=== PATIENT | male | born 1945 | race Caucasian/White ===

== ENCOUNTER 2020-01-13 15:14 | Emergency (ER) | payer MEDICARE, OTHER, SELFPAY ==
[2020-01-13 15:20] VITALS: BP 108/61; PULSE 71; RESP 16; TEMP 37; O2SAT 98; BMI 25.1
--- NOTE | 2020-01-13 15:38 | DI.CT.S_ITS ---
PROCEDURE: CT HEAD/BRAIN WO CON INDICATIONS: head injury TECHNIQUE: Noncontrast 4.5 mm thick angled axial sections acquired from the foramen magnum to the vertex, with coronal and sagittal reformats. For radiation dose reduction, the following was used: automated exposure control, adjustment of mA and/or kV according to patient size. COMPARISON: None. FINDINGS: Image quality: Excellent. CSF spaces: Basal cisterns are patent. Left posterior fossa arachnoid cyst is noted which has mild mass effect in left cerebellar hemisphere.. The ventricles are symmetric in size and shape. Brain: No intracranial bleeds or masses. There is cerebral volume loss for age, with resultant ventricular and sulcal prominence. There are periventricular and deep white matter chronic small vessel ischemic changes. There is intracranial internal carotid artery atherosclerosis. Skull and face: Calvarium and visualized facial bones appear intact, without suspicious lesions. Small right frontal/periorbital soft tissue hematoma. Sinuses: Visualized sinuses and mastoids are clear. IMPRESSION: No acute intracranial disease process. Dictated by: Roya Garrett MD, PhD on 01/13/2020 at 15:51 Approved by: Roya Garrett MD, PhD on 01/13/2020 at 15:58
--- NOTE | 2020-01-13 16:09 | ED.HEATRA ---
HPI - Head Injury <DOUG Low - Last Filed: 01/13/20 21:05> General Chief complaint: Head Injury Stated complaint: fall in drive way, hit his head Time Seen by Provider: 01/13/20 15:49 Source: patient Mode of arrival: Wheelchair History of Present Illness HPI Narrative: 75yo male with a history of Parkinson's presents to the emergency department for a fall that occurred about 2 hours ago. Patient has a shuffle to his gait and was walking up the driveway when he reports tripping and falling and hitting his head on the concrete. Patient denies any loss of consciousness, vomiting, vision changes, or vision changes. He helped himself up from his fall and began to walk towards the house where he tripped and fell again. He denies pain in any other area but does report a laceration over his right eyebrow. Patient denies any loss of consciousness after the 2nd fall, family reports he walked to the house and tapped on the window and was ?covered in blood ?from the laceration but remained himself. Family and patient deny any unusual behavior, deformities, change in activities, vomiting, abdominal pain, chest pain, shortness of breath, vision loss, double vision, dizziness, or any other concerns. Related Data Home Medications Medication Instructions Recorded Confirmed carbidopa-levodopa tab 01/13/20 citalopram 10 mg PO DAILY 01/13/20 01/13/20 rivastigmine tartrate mg 01/13/20 Allergies Allergy/AdvReac Type Severity Reaction Status Date / Time No Known Drug Allergies Allergy Verified 01/13/20 15:26 Review of Systems <DOUG Low - Last Filed: 01/13/20 21:05> Review of Systems Narrative: REVIEW OF SYSTEMS: GENERAL: Denies fever or chills. HENT: Reports head trauma with laceration, no LOC. EYES: No loss of vision, double vision, eye pain, or irritation. CARDIOVASCULAR: No chest pain or syncope. RESPIRATORY: No shortness of breath or cough. GASTROINTESTINAL: No nausea, vomiting, diarrhea, or constipation. MUSCULOSKELETAL: No pain, weakness, or deformities. INTEGUMENTARY: No rash, lesions, or pruritus. NEURO: No numbness, tingling, confusion. PSYCH: No behavior or mood changes. Patient History <DOUG Low - Last Filed: 01/13/20 21:05> Medical History No significant medical problems (Acute) Social History Smoking Status: Former smoker Smoking Status: Former smoker alcohol intake frequency: 0-2 drinks per day Alcohol type: wine Substance Use Type: does not use Exam <DOUG Low - Last Filed: 01/13/20 21:05> Initial Vital Signs Initial Vital Signs: Vital Signs Temperature 98.6 F 01/13/20 15:20 Pulse Rate 71 01/13/20 15:20 Respiratory Rate 16 01/13/20 15:20 Blood Pressure 108/61 01/13/20 15:20 Pulse Oximetry 98 01/13/20 15:20 PHYSICAL EXAMINATION: GENERAL: Well groomed, alert, and cooperative. Answers questions promptly and appropriately. Vital signs noted. HENT: Normocephalic, atraumatic. Ear canals patent. Oral mucosa is pink and moist. 3.5cm forehead laceration noted to medial aspect of right eyebrow, bleeding controlled without pressure. EYES: PERRLA, EOMIs, Conjunctiva pink, sclera white, no periorbital swelling. CHEST: Normal to inspection and without deformities. CARDIOVASCULAR: S1 and S2 sounds normal. Regular rate and rhythm, no murmurs, clicks, or bruits. No pedal edema. RESPIRATORY: Normal respiratory rate, trachea midline, airway patent. No stridor, nasal flaring or accessory muscle use. Lungs are clear in all storm without wheeze, rhonchi, or crackles. GASTROINTESTINAL: Bowel sounds normoactive. Abdomen is soft and non-tender. No organomegaly. MUSCULOSKELETAL: No pain on palpation or deformities to shoulders, arms, hips, legs, knees, or ankles. Two 3-4 cm abrasions noted to right and left knee, no bleeding. Equal tone and mass bilaterally. Patient observed to have a shuffle to his gait, which family reports this as his norm. EXTREMITIES: CMS intact. Moves all extremities. SKIN: Warm, dry, soft, appropriate color for ethnicity. No lesions, rashes, or wounds. NEURO: Alert and Oriented X 3. CN III-XIII grossly intact. Good coordination. Ataxia observed, patient and family report this is his norm. PSYCH: Appropriate affect and mood. <Armando River DO - Last Filed: 01/21/20 20:39> Initial Vital Signs Initial Vital Signs: Vital Signs Temperature 98.6 F 01/13/20 15:20 Pulse Rate 71 01/13/20 15:20 Respiratory Rate 16 01/13/20 15:20 Blood Pressure 108/61 01/13/20 15:20 Pulse Oximetry 98 01/13/20 15:20 Procedures <DOUG Low - Last Filed: 01/13/20 21:05> Laceration Repair Laceration 1: Site: face Size (cm): 3.5 Description: linear Depth: simple, single layer Pre-repair: irrigated extensively Skin layer closed with: dermabond Course <DOUG Low - Last Filed: 01/13/20 21:05> Orders Ordered: Discontinued Medications Diphtheria/Tetanus/Acell Pertussis (Adacel) 0.5 ml IM .ONCE ONE Stop: 01/13/20 15:29 Last Admin: 01/13/20 16:17 Dose: 0.5 ml Documented by: [email or web address] Consultations Consultation #1: Patient staffed with Dr. River. Vital Signs Vital signs: Vital Signs - 8 hr 01/13/20 15:20 01/13/20 16:49 Temperature 98.6 F Pulse Rate 71 67 Respiratory Rate 16 15 Blood Pressure 108/61 137/80 Pulse Oximetry 98 94 <Armando River DO - Last Filed: 01/21/20 20:39> Orders Ordered: Discontinued Medications Diphtheria/Tetanus/Acell Pertussis (Adacel) 0.5 ml IM .ONCE ONE Stop: 01/13/20 15:29 Last Admin: 01/13/20 16:17 Dose: 0.5 ml Documented by: [email or web address] Vital Signs Vital signs: Vital Signs - 8 hr 01/13/20 15:20 01/13/20 16:49 Temperature 98.6 F Pulse Rate 71 67 Respiratory Rate 16 15 Blood Pressure 108/61 137/80 Pulse Oximetry 98 94 MDM - Head Injury <DOUG Low - Last Filed: 01/13/20 21:05> Medical Records Attestation: I reviewed the patient's medical records. Lab Data Attestation: I reviewed the patient's lab results. Imaging Data CT scan - head: Radiologist's Impression: [address] [address] [address] Scan Report Signed Patient: Jc Amaya [facility]#: [id number] : 7Acct:[id number] Age/Sex: 75 / MDate of Service: 01/13/20 Loc: ED Accession Number: [id number] Procedure: CT head/brain wo con Ordering Provider: Armando River D.O. PROCEDURE: CT HEAD/BRAIN WO CON INDICATIONS: head injury TECHNIQUE: Noncontrast 4.5 mm thick angled axial sections acquired from the foramen magnum to the vertex, with coronal and sagittal reformats. For radiation dose reduction, the following was used: automated exposure control, adjustment of mA and/or kV according to patient size. COMPARISON: None. FINDINGS: Image quality: Excellent. CSF spaces: Basal cisterns are patent. Left posterior fossa arachnoid cyst is noted which has mild mass effect in left cerebellar hemisphere.. The ventricles are symmetric in size and shape. Brain: No intracranial bleeds or masses. There is cerebral volume loss for age, with resultant ventricular and sulcal prominence. There are periventricular and deep white matter chronic small vessel ischemic changes. There is intracranial internal carotid artery atherosclerosis. Skull and face: Calvarium and visualized facial bones appear intact, without suspicious lesions. Small right frontal/periorbital soft tissue hematoma. Sinuses: Visualized sinuses and mastoids are clear. IMPRESSION: No acute intracranial disease process. Dictated by: Roya Garrett MD, PhD on 01/13/2020 at 15:51 Approved by: Roya Garrett MD, PhD on 01/13/2020 at 15:58 [facility] Narrative Medical decision making narrative: This is a 75-year-old male presenting to the emergency department with a history of Parkinson's and describing a clear mechanical fall without significant risk factors such as syncope. But due to his multiple falls that were unwitnessed, CT was ordered which was non-remarkable (less intracranial etiology). Patient remained alert and awake and hemodynamically stable throughout the emergency department stay. There is a small laceration without significant hematomas noted to his right forehead. This was repaired with glue (see procedure note), there was no alarming findings in his neurological exam. Very little suspicion of presyncopal episodes or other hemodynamic instabilities leading to falls as patient has a shuffling gait which causes him to fall often And patient did not have any other symptoms with, before, or after the fall. Patient and family were given very strict return precautions, they agreed to plan of care verbalized understanding. Discharge Plan Departure Patient Disposition: Home Clinical Impression: Head injury Qualifiers: Encounter type: initial encounter Qualified Code(s): S09.90XA - Unspecified injury of head, initial encounter Facial laceration Qualifiers: Encounter type: initial encounter Qualified Code(s): S01.81XA - Laceration without foreign body of other part of head, initial encounter Discharge Date/Time: 01/13/20 16:50 Instructions: DI for Closed Head Injury Activity Restrictions/Additional Instructions: Thank you for entrusting me with your care today. As discussed, your head CT is negative for any concerning findings. I have repaired the laceration with glue. Keep the area clean and dry, do not apply any Neosporin or ointment to the wound for the next 3-4 days as this will dissolve the glue quickly. After day 4, you may apply Neosporin. Watch for signs of infection such as increased redness, pus, and increased pain. Return emergency department immediately if you developed severe headaches, vision changes, continued falls, chest pain, shortness of breath, high fevers, or any other concerns. Your Tdap vaccination was updated today, your arm may feel sore over the next 1-2 days. Prescriptions: No Action citalopram 10 mg tablet 10 mg PO DAILY RF: 0 rivastigmine tartrate 6 mg capsule RF: 0 carbidopa-levodopa 25-100 mg tablet RF: 0 <Armando River, DO - Last Filed: 01/21/20 20:39> Sign Out Provider Sign Out Attestation: Dr River Co-Sign Statement: I was available for consultation during this patient's emergency department visit. This chart is signed by myself for administrative purposes only. I did not have direct contact with this patient during this visit. They were seen independently by the APC.
[2020-01-13] MEDS: TET,DIPH,PERTUSS(ACELL),VAC/PF 0.5 ML SYRINGE IM (16:17)
[2020-01-13 16:49] VITALS: BP 137/80; PULSE 67; RESP 15; O2SAT 94
== END 2020-01-13 16:50 | disposition home or self-care (01) ==
PROVIDERS: Emergency Provider Nurse Practitioner
DX: S09.90XA Unspecified injury of head, initial encounter (principal); S01.81XA Laceration without foreign body of other part of head, initial encounter; W19.XXXA Unspecified fall, initial encounter; G20 Parkinson's disease; Z23 Encounter for immunization
CPT/HCPCS: 70450; 90471; 99283; 99284; 90715

== ENCOUNTER 2020-05-21 08:54 | Observation (INO) | payer MEDICARE, OTHER, SELFPAY ==
[2020-05-21] VITALS (7 sets, daily range): BP systolic 108–157; BP diastolic 62–100; PULSE 58–100; RESP 18–20; TEMP 36.6–37.1; O2SAT 94–97; BMI 25.9
--- NOTE | 2020-05-21 09:01 | ED.FALL ---
HPI - Fall General Chief Complaint: Fall Stated Complaint: Fall 2 days ago Time Seen by Provider: 05/21/20 09:00 Source: patient, family and EMS Limitations: no limitations (Dementia and Parkinson's) History of Present Illness HPI Narrative: Patient is a 75-year-old male with history of Parkinson's and dementia presenting after an assisted fall 2 days ago. He is not on any antiplatelet or anticoagulation medication. There was no head injury or loss of consciousness during the fall he does however have a bruise on the left side. Family is concerned for possible internal bleeding. He denies any abdominal pain no nausea no headache. Family also thought that they saw blood in his urine. at bedside states that the caregiver caught him and lowered him to the ground however on his way down he hit on a chair. He is typically able to help get himself up and out of bed however since the injury she is unable to get him out of bed due to pain she has given him Tylenol and ibuprofen without much relief. MD complaint: fall Onset (ago): day(s) (2) Fall from: standing Prolonged down time: no Related Data Home Medications Medication Instructions Recorded Confirmed carbidopa-levodopa See Rx Instructions .ROUTE .COMPLEX 01/13/20 05/21/20 quetiapine 25 mg PO BID 05/21/20 05/21/20 Allergies Allergy/AdvReac Type Severity Reaction Status Date / Time No Known Drug Allergies Allergy Verified 05/21/20 09:05 Review of Systems Review of Systems Narrative: GENERAL: Denies chills, fatigue, malaise, fever, sweats, travel HEENT: Denies sinus pain, ear pain, sore throat, difficulty swallowing, neck pain RESPIRATORY: Denies dyspnea, cough, wheezing, hemoptysis, sputum. CARDIOVASCULAR: Denies chest pain, palpitations, orthopnea, edema GASTROINTESTINAL: Denies nausea, vomiting, abdominal pain, diarrhea, constipation, melena. : Denies dysuria, frequency, incontinence, hematuria, urinary retention, flank pain. MUSCULOSKELETAL: See HPI SKIN: Contusion NEUROLOGIC: Denies weakness, dizziness, headache, numbness, change in speech, confusion PSYCHIATRIC: No concerning psychosocial issues. 12 point review of systems is negative except for those stated above and HPI Patient History Medical History Dementia (Acute) No significant medical problems (Acute) Parkinsons (Acute) Social History household members: spouse Smoking Status: Former smoker Smoking Status: Former smoker alcohol intake frequency: 0-2 drinks per day Alcohol type: wine Substance Use Type: does not use Exam Initial Vital Signs Initial Vital Signs: Vital Signs Temperature 98.8 F 05/21/20 09:02 Pulse Rate 70 05/21/20 09:02 Respiratory Rate 20 05/21/20 09:02 Blood Pressure 116/75 05/21/20 09:02 Pulse Oximetry 97 05/21/20 09:02 GENERAL: Alert gentleman with parkinsonian like features and in no acute distress. HEENT: Head atraumatic,EOMI, pupils reactive, face symmetric NECK: No vertebral tenderness no step-off CARDIOVASCULAR: Regular rate and rhythm without murmurs, rubs or gallops. Rib contusion noted on left lateral no paradoxical movement no flail chest RESPIRATORY: Breath sounds equal bilaterally, no wheezes rales or rhonchi. ABDOMEN: Soft, nontender. Normoactive bowel sounds all 4 quadrants. No guarding or rebound. BACK: No vertebral tenderness no step-off contusion noted left lateral ribs around 7 and 8 mild swelling is noted : No CVA tenderness EXTREMITIES: Normal range of motion, no clubbing or edema. Neurovascularly intact NEUROLOGICAL: Alert answers questions channel marketing specialist strength equal bilaterally SKIN: Warm, dry, no laceration, no petechiae, no rashes or lesions. Course Orders Ordered: ED Orders 05/21/20 09:00 XR ribs LT min 3V w CXR1V Stat Complete Blood Count AUTO DIFF Stat 05/21/20 09:12 Urinalysis and Microscopic Stat 05/21/20 09:28 Basic Metabolic Panel Stat 05/21/20 10:04 Consult to Physical Therapy Evaluate & Treat 05/21/20 10:37 Consult to General Surgery Stat Oxycodone/Acetaminophen (Percocet 5/325) 1 tab PO Q4HR PRN PRN Reason: Pain, Moderate (4-6) Vital Signs Vital signs: Vital Signs - 8 hr 05/21/20 09:02 05/21/20 09:30 Temperature 98.8 F Pulse Rate 70 86 Respiratory Rate 20 Blood Pressure 116/75 117/74 Pulse Oximetry 97 97 MDM - Fall Lab Data Attestation: I reviewed the patient's lab results. Result diagrams: 05/21/20 09:00 05/21/20 09:28 Labs: Lab Results 05/21/20 05/21/20 05/21/20 Range/Units 09:00 09:12 09:28 WBC 8.6 (4.5-11.0) X10^3/uL RBC 4.54 (4.5-5.9) X10^6/uL Hgb 14.9 (13.5-17.5) g/dL Hct 43.9 (41-53) % MCV 96.7 (80-100) fL MCH 32.9 (26-34) PG MCHC 34.0 (30-36) % RDW 13.4 (11.6-14.8) % Plt Count 202 (150-400) X10^3/uL Neut % (Auto) 78.7 H (50-75) % Lymph % (Auto) 13.5 L (25-40) % [place] % (Auto) 7.0 (3-14) % Eos % (Auto) 0.2 L (2-4) % Baso % (Auto) 0.6 (0-2) % Neut # (Auto) 6700 (9899-0942) /uL Lymph # (Auto) 1200 (1729-5078) /uL [place] # (Auto) 600 (0-900) /uL Eos # (Auto) 0 (0-450) /uL Baso # (Auto) 100 (0-100) /uL Sodium 137 (137-145) mmol/L Potassium 4.0 (3.4-5.1) mmol/L Chloride 107 (98-107) mmol/L Carbon Dioxide 22 (22-32) mmol/L BUN 19 (9-20) mg/dL Creatinine 0.70 (0.66-1.25) mg/dL Estimated GFR > 60.0 (>60) mL/min BUN/Creatinine Ratio 27.1 H (6-22) Glucose 111 H (80-110) mg/dL Calcium 9.4 (8.4-10.2) mg/dL Urine Color [place] Urine Appearance Cloudy Urine pH 6.0 (4.5-8.0) Ur Specific [place] 1.025 (1.000-1.035) Urine Protein Trace H (Negative) Urine Glucose (UA) Negative (Negative) g/dL Urine Ketones Negative (NEGATIVE) Urine Occult Blood Trace-intact (Negative) Urine Nitrate Negative (Negative) Urine Bilirubin Negative (NEGATIVE) Urine Urobilinogen 0.2 (0.2) E.U./dL Ur Leukocyte Esterase Negative (NEGATIVE) Urine RBC 1-5/hpf (0-5/HPF) Urine WBC 0-1/hpf (0-5/HPF) Urine Bacteria None seen (None) Urine Mucus 1+ H (Negative) Ur Culture Indicated? Cult not indicated Imaging Data Chest x-ray: Radiologist's Impression: PROCEDURE: XR RIBS LT MIN 3V W CXR1V INDICATIONS: fall 2 days ago TECHNIQUE: 4 views of the left ribs were acquired, along with a single view chest. COMPARISON: None. FINDINGS: Surgical changes and devices: None. Bones and chest wall: Minimally displaced fractures involving the 7th through eleventh left ribs are evident. No suspicious bony lesions. Overlying soft tissues appear unremarkable. Lungs and pleura: No pleural effusions or pneumothorax. Lungs appear clear. Mediastinum: Mediastinal contours appear normal. Heart size is normal. IMPRESSION: Multiple minimally displaced lower left rib fractures. No pneumothorax. Dictated by: Sg Anglin M.D. on 05/21/2020 at 8:34 MDM Narrative Medical decision making narrative: Patient found to have multiple rib fractures meet criteria for modified trauma. His patient is unable to get out of bed due to multiple fractures he will need to stay in the hospital. Surgery has been consulted due to modified trauma however patient will be admitted to Medicine. Dr. gomez has been notified and agrees Dr. Wilder in the emergency department to see and evaluate patient Discharge Plan Departure Patient Disposition: Admitted as Observation Clinical Impression: Fracture of multiple ribs of left side Qualifiers: Encounter type: initial encounter Fracture type: closed Qualified Code(s): S22.42XA - Multiple fractures of ribs, left side, initial encounter for closed fracture Discharge Date/Time: 05/21/20 12:08 Admit Date/Time: 05/21/20 10:41 Admit Provider: Giulia Gomez
[2020-05-21 09:26] LABS: Add Manual Diff / Slide Review NO; Basophils Absolute Auto 100 /uL (0-100); Basophils Percent Auto 0.6 % (0-2); Eosinophils Absolute Auto 0 /uL (0-450); Eosinophils Percent Auto 0.2 % (2-4); Hematocrit 43.9 % (41-53); Hemoglobin 14.9 g/dL (13.5-17.5); Lymphocytes Absolute Auto 1200 /uL (1100-4500); Lymphocytes Percent Auto 13.5 % (25-40); Mean Corpuscular Hemoglobin 32.9 PG (26-34); Mean Corpuscular Volume 96.7 fL (80-100); Monocytes Absolute Auto 600 /uL (0-900); Neutrophils Absolute Auto 6700 /uL (1500-7000); Neutrophils Percent Auto 78.7 % (50-75); Platelet Count 202 X10^3/uL (150-400); Red Blood Cell Count 4.54 X10^6/uL (4.5-5.9); Red Cell Distribution Width 13.4 % (11.6-14.8); White Blood Cell Count 8.6 X10^3/uL (4.5-11.0)
[2020-05-21 09:26] LABS: Bacteria Urine None Seen
[2020-05-21 09:27] LABS: Appearance Urine UA CLOUDY; Bilirubin Urine UA NEGATIVE (NEGATIVE); Color Urine UA ORANGE; Glucose Urine UA NEGATIVE (Negative); Ketones Urine UA NEGATIVE (NEGATIVE); Leukocyte Esterase Urine UA NEGATIVE (NEGATIVE); Nitrite Urine UA NEGATIVE (Negative); Occult Blood Urine UA TRACE-INTACT (Negative); Protein Urine UA TRACE (Negative); Specific Gravity Urine UA 1.025 (1.000-1.035); Urobilinogen Urine UA 0.2 E.U./dL (0.2)
[2020-05-21 09:35] LABS: Culture Indicated Urine Cult Not Indicated; Mucus Urine 1+ (Negative); RBC Urine 1-5/HPF (0-5/HPF); WBC Urine 0-1/HPF (0-5/HPF)
[2020-05-21 09:39] LABS: BUN Creatinine Ratio 27.1 (6-22); Blood Urea Nitrogen 19 mg/dL (9-20); Calcium 9.4 mg/dL (8.4-10.2); Carbon Dioxide 22 mmol/L (22-32); Chloride 107 mmol/L (98-107); Estimated Glomerular Filt Rate > 60.0 mL/min (>60); Glucose 111 mg/dL (80-110); HEMOLYSIS 34 (0-50); Sodium 137 mmol/L (137-145)
--- NOTE | 2020-05-21 10:52 | PT-IP ANOTE ---
Received PT order while pt in ED. Reviewed the chart and prepared to meet the pt, but ED provider states pt will be admitted. Will follow up with this pt once admitted to the acute care floor.
--- NOTE | 2020-05-21 10:52 | PM.CN ---
History of Present Illness Consult details Date Patient Seen: 05/21/20 Time Patient Seen: 10:52 Chief complaint: Fall 2 days ago Narrative: 75-year-old male with dementia began to fall 2 days ago was caught by his attendant min on the way to the floor he struck a tear in his left side. On x-ray today there appears to be 2 fractured ribs although the radiologist can see more I myself see only 2 7 and 8 or 8 9 left-sided. There is no pneumonia no pleural effusion no pulmonary contusion. He has no abdominal pain. Meds Home Medications and Allergies Home Medications Medication Instructions Recorded Confirmed Type carbidopa-levodopa tab 01/13/20 History citalopram 10 mg PO DAILY 01/13/20 01/13/20 History rivastigmine tartrate mg 01/13/20 History Allergies Allergy/AdvReac Type Severity Reaction Status Date / Time No Known Drug Allergies Allergy Verified 05/21/20 09:05 Exam Vital Signs (past 8 hours): - 05/21/20 09:02 05/21/20 09:30 Temperature 98.8 F Pulse Rate 70 86 Respiratory Rate 20 Blood Pressure 116/75 117/74 Pulse Oximetry 97 97 Oxygen Delivery Method Room Air Narrative Exam Narrative: The patient can communicate regarding the present. He is not a good historian. Patient has minimal tenderness left lower ribs. Equal breath sounds bilaterally. No abdominal tenderness. Objective Labs Result Diagrams: 05/21/20 09:00 05/21/20 09:28 Labs: Laboratory Results - last 24 hr 05/21/20 05/21/20 05/21/20 09:00 09:12 09:28 WBC 8.6 RBC 4.54 Hgb 14.9 Hct 43.9 MCV 96.7 MCH 32.9 MCHC 34.0 RDW 13.4 Plt Count 202 Neut % (Auto) 78.7 H Lymph % (Auto) 13.5 L [place] % (Auto) 7.0 Eos % (Auto) 0.2 L Baso % (Auto) 0.6 Neut # (Auto) 6700 Lymph # (Auto) 1200 [place] # (Auto) 600 Eos # (Auto) 0 Baso # (Auto) 100 Sodium 137 Potassium 4.0 Chloride 107 Carbon Dioxide 22 BUN 19 Creatinine 0.70 Estimated GFR > 60.0 BUN/Creatinine Ratio 27.1 H Glucose 111 H Calcium 9.4 Urine Color [place] Urine Appearance Cloudy Urine pH 6.0 Ur Specific [place] 1.025 Urine Protein Trace H Urine Glucose (UA) Negative Urine Ketones Negative Urine Occult Blood Trace-intact Urine Nitrate Negative Urine Bilirubin Negative Urine Urobilinogen 0.2 Ur Leukocyte Esterase Negative Urine RBC 1-5/hpf Urine WBC 0-1/hpf Urine Bacteria None seen Urine Mucus 1+ H Ur Culture Indicated? Cult not indicated Assessment & Plan Assessment & Plan narrative: Somewhat demented male patient with at least 2 rib fractures left lower lateral ribs. No underlying effusion or pneumonia. The states that she cannot take care of him at home. He is being admitted to the medical service. I think arrangements should be considered for extended care facility. Proper analgesics can be taken orally. Incentive spirometer is ordered as well
[2020-05-21 12:40] LABS: COVID19 -Nasal RAPID Negative (Negative)
--- NOTE | 2020-05-21 13:07 | PC.NURSE ---
Patient admitted from the ER around 1230. VSS, He has dementia and is confused but pleasant. Having a hard time following direction, as patient does have a dx of dementia per his . He also has some Parkinsons, he has some clenching movements with his face and jaw. Patient has two bruises to the left side of his back, from previous fall and has fallen 2 times in less than a week. He is sleeping now and denies discomfort.
--- NOTE | 2020-05-21 13:33 | CM.DANOTE ---
DCP/Assessment: Reviewed chart in Emergency Department. Patient is a 75yr old male admitted to [facility] after fall 2 days ago. No PCP listed. Primary payor is 1)Medicare 2)[place] jaxon Gerber. Met with patient and spouse/Mirna at bedside in ED room#4 explained CM/SENIOR UI SOFTWARE ENGINEER role. Per Dr. Calderón patient will be admitted to floor by Dr. Gomez. Unclear at this time if patient will be OBS or inpatient status. Spouse at bedside teary eyed. She reports that patient with long h/o parkinson's and dementia. She is primary caregiver but also has hired assistance in the home. Patient reports that prior to patient's fall at home, he was able to ambulate fairly well with FWW. Patient and spouse have [place] at [address] [place] [address] they also have residence in [place]. Spouse reports that they have been [place] since January 2020. They decided to stay [place] during the pandemic. Spouse reports that they have not gone out much and that she has been dong a lot for patient in the home. Patient and spouse have daughter's that live in [place] as well. Spouse reports that she thinks patient fell twice but that he unsure. Apparently, yesterday she heard a loud bang coming from their bedroom. She came upstairs to check on patient and he was laying on bed diagonally moaning in pain. Since that time patient reports that she has not been able to get patient to move due to pain. Spouse grateful that patient admitted. She hopes to take patient home when he is stable but wants to first make sure that 1)pain under control 2)mobility increased. SENIOR UI SOFTWARE ENGINEER spoke with accepting provider/Dr. Gomez. She plans to see patient and spouse this afternoon. Suggested she order PT/OT and ST. Dr. Gomez in agreement. Spouse most likely would benefit from caregiver training as well. Spouse does have hired caregivers but she is unsure if this is enough. Informed spouse that CM team could most likely arrange HH as well. Spouse appreciative. Spouse confirms that they will be staying in [place] for awhile. The current residence is 2 story and she has appointment to have elevator installed to make it easier for her and patient to get up/down stairs. Master bedroom is on second floor. Notified spouse that SENIOR UI SOFTWARE ENGINEER would follow up with her and patient on Friday05-22-2020. Patient assigned to room #207. SENIOR UI SOFTWARE ENGINEER plans to keep and follow for d/c planning needs. Card with number provided to spouse. COVID test pending. P: Pending. New admit today, assessment completed in ED. SENIOR UI SOFTWARE ENGINEER to follow closely and coordinate d/c planning arrangements. Anticipate home with HH. RAJNI Lewis Discharge Planning/Care Management CM Discharge Assessment Start: 05/21/20 13:25 Freq: Status: Active Protocol: Document 05/21/20 13:25 KJS (Rec: 05/21/20 13:33 KJS [id number]) Discharge Planning Assessment Assigned Inspection Engineer RAJNI Lewis Contact Information Mirna Amaya (spouse) Advance Directives? Yes Advance Directives on File No History Provided By Family Member,Significant Other,Medical Record Has Patient been admitted in last 30 No days? Prior Living Arrangements House Household Members spouse Type of transporation used prior to Relies on Others admit Independent with ADL's No: Per spouse, patient not currently I in ADL's. Is patient alert and oriented? No: History of dementia and parkinson's Needs Assistance With Bathing,Grooming,Meal Prep, Toileting,Managing Medications ,Home Chores / Shopping Caregiver for Another No DME Already Rented / Owned FWW / Walker Patient/Family Preference Home with Home Health Comment D/C needs unclear at this time . Spoke with Dr. Gomez ( admitting provider) she will order PT/OT and ST to evaluate during hospitalization. Discharge Plan Home with Home Health Transportation Arrangement Family to provide transport. Additional Comment Anticipate that patient will need HH vs. ? at time of d/c. Patient currently has private pay cargiver to assist spouse approximately 4hrs per day. If patient plan is home with home health No : Has signed face to face form been completed? Review Status In Process Next Review Type Continued Stay Review
--- NOTE | 2020-05-21 14:30 | PM.HP.1 ---
History of Present Illness History of Present Illness Date Patient Seen: 05/21/20 Chief complaint: Fall 2 days ago Narrative: Patient is a 75-year-old male with a history of Parkinson's disease and dementia who fell at home a few days ago. Patient was brought in as he tried to slumped down and the caregiver captured him. He apparently hit the chair. He was evaluated in the emergency room and found to have multiple rib fractures. The patient is unable to provide any history and his has since left. He denies any shortness of breath, any pain at this time. She denies any nausea vomiting or diarrhea. His history is somewhat unreliable. Patient History Medical History Dementia (Acute) No significant medical problems (Acute) Parkinsons (Acute) Family & Social History Family History (Updated 05/21/20 @ 14:32 by Giulia Gomez MD) Mother Patient unable to provide medical history Social History: household members spouse Prior Living Arrangements House Safety & Behavioral: Feels Safe in Current Yes Environment Been Physically Hurt or No Threatened By a Person Suicidal Ideation Description None Suicide Plan Description No Plan Tobacco & Substance use: Tobacco type cigarettes Smoking Status Former smoker alcohol intake frequency 0-2 drinks per day Substance Use Type does not use Meds Home Medications and Allergies Home Medications Medication Instructions Recorded Confirmed Type carbidopa-levodopa See Rx Instructions .ROUTE .COMPLEX 01/13/20 05/21/20 History quetiapine 25 mg PO BID 05/21/20 05/21/20 History Allergies Allergy/AdvReac Type Severity Reaction Status Date / Time No Known Drug Allergies Allergy Verified 05/21/20 09:05 Review of Systems Review of Systems ROS: Yes unobtainable due to mental status Exam Vital Signs (past 8 hours): - 05/21/20 09:02 05/21/20 09:30 05/21/20 11:30 Temperature 98.8 F Pulse Rate 70 86 58 L Respiratory Rate 20 Blood Pressure 116/75 117/74 122/87 Pulse Oximetry 97 97 96 05/21/20 13:09 Temperature 97.8 F Pulse Rate 67 Respiratory Rate 18 Blood Pressure 116/82 Pulse Oximetry 94 Oxygen Delivery Method Room Air Narrative Exam Narrative: Pleasant gentleman resting comfortably in no obvious distress HEENT: Normocephalic atraumatic, extraocular muscles are intact oropharynx reveals moist mucous membranes neck is supple without adenopathy Lungs: Clear to auscultation Cardiac exam: Regular rate and rhythm normal S1-S2 with a 2/6 systolic ejection Abdomen: Soft nontender nondistended Extremities: No edema Back patient is tender palpation in unable to move Neuro exam: Patient speech is somewhat slow. He appears at times confused he is not able to answer all questions. His cranial nerves are intact, his strength is symmetric and equal in the upper extremities, he has difficulty lifting both lower extremities but is able to lift them to gravity. Sensation is grossly intact Skin exam: No lesions noted Psychiatric exam patient is slow to respond seem somewhat confused, is not able answer all questions fully participate in exam. Objective Labs Result Diagrams: 05/21/20 09:00 05/21/20 09:28 Labs: Laboratory Results - last 24 hr 05/21/20 05/21/20 05/21/20 09:00 09:12 09:28 WBC 8.6 RBC 4.54 Hgb 14.9 Hct 43.9 MCV 96.7 MCH 32.9 MCHC 34.0 RDW 13.4 Plt Count 202 Neut % (Auto) 78.7 H Lymph % (Auto) 13.5 L [place] % (Auto) 7.0 Eos % (Auto) 0.2 L Baso % (Auto) 0.6 Neut # (Auto) 6700 Lymph # (Auto) 1200 [place] # (Auto) 600 Eos # (Auto) 0 Baso # (Auto) 100 Sodium 137 Potassium 4.0 Chloride 107 Carbon Dioxide 22 BUN 19 Creatinine 0.70 Estimated GFR > 60.0 BUN/Creatinine Ratio 27.1 H Glucose 111 H Calcium 9.4 Urine Color [place] Urine Appearance Cloudy Urine pH 6.0 Ur Specific [place] 1.025 Urine Protein Trace H Urine Glucose (UA) Negative Urine Ketones Negative Urine Occult Blood Trace-intact Urine Nitrate Negative Urine Bilirubin Negative Urine Urobilinogen 0.2 Ur Leukocyte Esterase Negative Urine RBC 1-5/hpf Urine WBC 0-1/hpf Urine Bacteria None seen Urine Mucus 1+ H Ur Culture Indicated? Cult not indicated COVID-19 PCR 05/21/20 11:13 WBC RBC Hgb Hct MCV MCH MCHC RDW Plt Count Neut % (Auto) Lymph % (Auto) [place] % (Auto) Eos % (Auto) Baso % (Auto) Neut # (Auto) Lymph # (Auto) [place] # (Auto) Eos # (Auto) Baso # (Auto) Sodium Potassium Chloride Carbon Dioxide BUN Creatinine Estimated GFR BUN/Creatinine Ratio Glucose Calcium Urine Color Urine Appearance Urine pH Ur Specific [place] Urine Protein Urine Glucose (UA) Urine Ketones Urine Occult Blood Urine Nitrate Urine Bilirubin Urine Urobilinogen Ur Leukocyte Esterase Urine RBC Urine WBC Urine Bacteria Urine Mucus Ur Culture Indicated? COVID-19 PCR Negative Assessment & Plan Assessment & Plan narrative: Impression 1. 75-year-old male admitted following a ground level fall -patient has suffered multiple nondisplaced left rib fracture -suspect underlying osteoporosis -baseline Parkinson's likely contributed to frequent fall -will continue incentive spirometer -will continue around the clock Tylenol -continue as needed oxycodone -PT OT consultation -plan is for the patient to discharge home with home health 2. Parkinson's disease with dementia -continue Seroquel -continue carbidopa levodopa Patient will be placed on DVT prophylaxis, he is admitted under observation, anticipate discharge home tomorrow Patient per is DNR and will note that his record accordingly Quality VTE Deep Vein Thrombosis/Pulmonary Embolism Present on Admission: No
[2020-05-21] MEDS: OXYCODONE/ACETAMINOPHEN 5/325 TABLET 1 TAB PO (15:22)
[2020-05-21] MEDS: CARBIDOPA-LEVODOPA 25/100 TABLET 1 EACH PO ×2 (15:22→20:06)
--- NOTE | 2020-05-21 15:37 | PT.IIE ---
Medical History (Last Reviewed 05/21/20 @ 09:05 by Demetra Calderón DO) Dementia (Acute) No significant medical problems (Acute) Parkinsons (Acute) Physical Therapy Inpatient Evaluation/Re-Eval M1 PT/OT-IP Prior Functional Status Start: 05/21/20 10:34 Freq: Status: Discharge Protocol: Document 05/21/20 14:51 AW (Rec: 05/21/20 15:37 AW [id number]) Medical Review Prior Functional Status Medical History Reviewed Yes Communication Pt has history of dementia. Able to make needs known Mobility and Gait Pt uses a 4WW for household and short distance community ambulation. He calls his walker Pilo. Pt's , Mirna states he can walk a city block with his walker. Pt 's reports he does best with mobility in the mornings and that his performance declines as the day wears on. When he forgets to use his walker, he will often begin toe-walking and then running which tends to result in a fall. Pt uses a manual wheelchair occasionally - typically when he goes to appointments in [place]. Mirna reports increased incidence of falls recently. Pt has Parkinson's disease and is followed by Dr. Hamilton Smith at [facility] in [place]. There have been no recent changes in his medications, including carbidopa levodopa. Activities of Daily Living and IADL's Pt's spouse provides total assist with dressing; set up, standby, and some washing/ drying assist for showers; and assist with toileting both for positioning on the toilet and for hygiene. Prior Functional Level (Other details) Pt and his have their [place] home on the market. They have been staying in their [facility] since early January. Mirna reports she has been struggling to get a permit for an elevator in the [facility] since the downstairs has only a tub and the pt has difficulty getting in and out of the tub. Walk in shower is upstairs and pt has been able to manage the stairs until recently. Pt's recently began jasmina for caregiver assist with [facility]. Caregiver has been in the home for the past month, starting at [id number] M-F which recently increased to [phone] M-F. Social History Household Members spouse Living Arrangements House Number of Floors (Floors) Two Floors Number of Stairs To Enter/Railing? Level entrance. Pt is able to stay on the main level but he and his prefer to use the walk in shower upstairs. To reach the second level, there are 5 steps with right rail ascending, a landing, and another 6 steps with left rail ascending. Home Environment High Toilet,Walk in Shower,Tub /Shower Home Equipment Four Wheel Walker,Manual Wheelchair,Grab Bars In Shower Additional Social History Comment Pt lives with his , Mirna, who provides primary caregiving. The couple have two daughters - one lives in [place] and the other lives in [place]. M2 PT-IP Current Condition Start: 05/21/20 10:34 Freq: Status: Discharge Protocol: Document 05/21/20 14:51 AW (Rec: 05/21/20 15:37 AW [id number]) Physical Therapy Current Condition Current Condition Evaluation Date 05/21/20 Treatment Diagnosis GLF, left rib fractures, PD, difficulty in walking Onset Date 05/18/20 Precautions Other Precautions high risk of falls M3 PT-IP Subjective Start: 05/21/20 10:34 Freq: Status: Discharge Protocol: Document 05/21/20 14:51 AW (Rec: 05/21/20 15:37 AW [id number]) Subjective Physical Therapy Visit Type Type Initial Evaluation Visit Start Time 13:39 Visit Stop Time 14:26 Total Visit Minutes 47 Notes Pt seen alone. Most history and PLOF was gleaned from telephone conversation with pt 's . Physical Therapy Visit Comments Patient Comments Pt is pleasant and willing to participate with PT. Therapy Pain Assessment Pain When Pain Assessed During Mobility Pain Present Pain Present Pain Reported Location left back Scale Used pt unable to quantify Pain Behaviors Facial Grimacing,Guarding, Holding Area,Restlessness, Wincing Pain Management Techniques Distraction,Re-positioning M4 PT-IP Mobility and Gait Start: 05/21/20 10:34 Freq: Status: Discharge Protocol: Document 05/21/20 14:51 AW (Rec: 05/21/20 15:37 AW [id number]) PT-Bed Mobility Assessment Rolling Type of Rolling Log Rolling,Roll to Right Level of Assist Minimal Assistance,1 Person Assistance Supine to Sit Supine to Sit Moderate Assistance,1 Person Assistance,Bedrails Sit to Supine Sit to Supine Moderate Assistance,1 Person Assistance,Bedrails Scooting Scooting to Edge of Bed Contact Guard Assistance PT-Transfer Assessment Sit to and From Stand Sit to and from Stand Minimal Assistance,1 Person Assistance,Use of Upper Extremities Equipment Transfer Assistive Device Gait Belt,Front Wheeled Walker Transfers Transfer Destination Bed,Chair Transfer Technique pt ambulated with FWW Transfer Ability Level of Assist Moderate Assistance,1 Person Assistance,Use of Upper Extremities Comments Mobility Comments Pt was reclined in bed upon PT arrival. For log roll to his right side, pt required verbal and tactile cues for sequencing and min A x 1. Sidelying to sit transition required mod A x 1 and use of bed rails. Pt was able to sit EOB CGA with rightward lean in sitting. He scooted to EOB CGA with extra time due to pain response. He stood from the bed in the lowest position min A x 1 due to weakness and unsteadiness in initial standing. Pt presented with posterior lean in standing but was able to correct in response to cues. He stood and performed marching steps in place for 1 minute before ambulating toward the door with FWW and min assist for direction with the FWW. He turned and ambulated back to the chair where he transferred with min A x 1. He sat for strength assessment and then stood again min A x 1 for transfer to the bed as requested due to fatigue. Pt required max cues for sequencing and responded best to simple one-word commands. He sat EOB and required mod A x 1 for sit to supine. Pt was repositioned on the bed with alarm on most sensitive setting, call light and all needs within reach. Gait Assessment Gait Gait Assistance Required: Minimum Assistance,1 Person Assist Distance (Feet) 25 Assistive Devices Assistive Device Gait Belt,Front Wheeled Walker Gait Deviations General Gait Pattern Decreased Stride Length, Decreased Feet Clearance, Festinating,Flexed Trunk, Narrow Based Gait Factors Limiting Gait Function Factors Limiting Gait Function Abnormal Tonal Influences, Decreased Activity Tolerance, Decreased Sensation,Decreased Strength,Difficulty Following Directions,Incoordination, Limited Range of Motion,Pain, Poor Balance,Poor Safety Awareness Comments Gait Comments Pt required max cues for walker management, including frequent direction to keep his feet within the walker frame. He uses a 4WW at home and may do better in future with 4WW for familiarity. Stair Climbing Assessment Comments Stair Climbing Comments Not assessed. PT-Balance Assessment Sitting Balance and Reactions Static Sitting Balance Ability Good Dynamic Sitting Balance Ability Good Standing Balance and Reactions Static Standing Balance Ability Fair Dynamic Standing Balance Ability Poor Device Used FWW M5 PT-IP Objective Assessments Start: 05/21/20 10:34 Freq: Status: Discharge Protocol: Document 05/21/20 14:51 AW (Rec: 05/21/20 15:37 AW [id number]) Orientation Orientation/Cognition Level of Alertness Confusional State Orientation Name,Place Safety Awareness Decreased Safety Awareness Memory Description Short Term Impaired,Prison Impaired Comments Pt has hypophonia. He was oriented to self and could say he was in the hospital but was not sure where. He was not otherwise oriented. Pt unable to provide details of his falls or of his home environment. Gross Range of Motion Upper Extremity ROM Assessment Bilaterally Impaired Impairments secondary to pain Lower Extremity ROM Assessment Within Functional Limits Strength Upper Extremity Strength Assessment Bilaterally Impaired Lower Extremity Strength Assessment Bilaterally Impaired Hip 4/5 Knee 4+/5 Ankle 4/5 Coordination Assessment Gross Coordination Gross Coordination Impaired Assessment Finger to Nose Test Moderate Impairment Sensation Assessment Sensation Proprioception (Position) Impaired Comments Sensation Comments Hypokinesia and bradykinesia indicative of sensory mismatch between perceived and actual motor output. Muscle Tone Muscle Tone WNL No Comments Muscle Tone Comments Rigidity of trunk. M6 PT-IP Treatment Start: 05/21/20 10:34 Freq: Status: Discharge Protocol: Document 05/21/20 14:51 AW (Rec: 05/21/20 15:37 AW [id number]) Physical Therapy Treatment Education Education Provided Precautions,Safety M7 PT-IP Assessment and Plan Start: 05/21/20 10:34 Freq: Status: Discharge Protocol: Document 05/21/20 14:51 AW (Rec: 05/21/20 15:37 AW [id number]) PT Summary Assessment and Plan Potential Rehabilitation Potential Fair Status of Condition at Evaluation Evolving Summary Impairments Pain,ROM,Strength,Balance, Coordination,Sensation,Tone, Cognition,Bed Mobility, Transfers,Gait,Activity Tolerance Assessment Summary Massimo is a 75 yo man with Parkinson's disease, dementia, and recent increase in frequency of falls. He is admitted to acute care secondary to recent falls resulting in left-sided rib fractures. At baseline, pt uses a 4WW (Pilo) for household and short distance community ambulation. He sometimes uses a wheelchair ( either self-propelled using B UE or pushed by his ) for longer distances. Pt's is his primary caregiver and assists with all ADL's. Pt also has caregiver support in the home [id number] Friday through Friday. Pt's also expresses concern regarding the pt's swallow. On evaluation, pt required mod assist of one for bed mobility and min assist of one for transfers and short bout ambulation with a FWW. Pt will benefit from continued acute care PT to improve safe mobility. Caregiver training for pt's will be conducted prior to discharge. Pt will likely be safe for discharge to the home environment with 24/7 assist once medically cleared and would benefit from home health . Consideration of long-term care options for this patient is also warranted. Goals Bed Mobility Goal Contact Guard Assistance Transfer Goal Standby Assistance,Four Wheeled Walker Gait Goal Standby Assistance,Four Wheel Walker Gait Distance 150 Other Goals - up/down 5 steps with left rail ascending CGA - up/down 6 steps with right rail ascending CGA Days to Meet Goals 10 Frequency of Treatment Frequency Of Treatment Once a Day Treatment Plan Physical Therapy Treatment Plan Bed Mobility Training,Transfer Training,Gait Training, Therapeutic Exercise,Balance Retraining,Discharge Planning, Hot or Cold Pack,Neuromuscular Re-ed,Coordination Retraining Other Recommendations and Next Treatment assess gait with 4WW; trial Focus stairs if able; caregiver training with pt's Recommendations To Nursing Amount of Assist Needed 1 Person Assist Discharge Recommendations PT Discharge Recommendations Home with 24/7 Assist,Home Health Transportation Needs at Discharge Private Vehicle
--- NOTE | 2020-05-21 18:28 | PC.NURSE ---
Alert to self and knows he's in the hospital but not which hospital (looked for context clues), stated it's 1968 and unsure if he's joking. Can make needs known but is suspicious of surroundings. Denies SOB, obvious pain with inspiration, saturating WNL on RA. 2PMaxA to transfer, bradykinesia and rigidity with movements. Experiencing paranoia r/t scanning ID bracelet with med pass (did not want this RN to do it) and refused to take scheduled APAP calling it a fraudulent prescription. High fall risk d/t abnormal gait and multiple recent falls. Bed alarm on and functioning, call light in reach.
[2020-05-21] MEDS: DOCUSATE 100 MG CAPSULE PO (20:06)
[2020-05-21] MEDS: QUETIAPINE 25 MG TABLET PO (20:06)
[2020-05-21] MEDS: SENNOSIDES 8.6 MG TABLET 17.2 MG PO (20:06)
[2020-05-22 04:39] VITALS: BP 156/89; PULSE 82; RESP 16; TEMP 36.5; O2SAT 95
[2020-05-22 07:32] VITALS: BP 147/94; PULSE 90; RESP 15; TEMP 36.6; O2SAT 95
[2020-05-22] MEDS: QUETIAPINE 25 MG TABLET PO ×2 (09:34→20:16)
[2020-05-22] MEDS: DOCUSATE 100 MG CAPSULE PO ×2 (09:34→20:16)
[2020-05-22] MEDS: IBUPROFEN 600 MG TABLET PO (09:34)
[2020-05-22] MEDS: CARBIDOPA-LEVODOPA 25/100 TABLET 1 EACH PO (09:35)
[2020-05-22] MEDS: ENOXAPARIN 40 MG/0.4 ML SYRINGE SUBCUT (09:35)
[2020-05-22] MEDS: SODIUM CHLORIDE 0.9% FLUSH 10 ML IV ×2 (09:36→20:17)
[2020-05-22] MEDS: CARBIDOPA-LEVODOPA 25/100 TABLET 2 EACH PO (10:36)
--- NOTE | 2020-05-22 10:56 | DI.RAD.S_ITS ---
PROCEDURE: XR CHEST 1V INDICATIONS: left rib fractures TECHNIQUE: One view of the chest was acquired. COMPARISON: [facility], CR, XR RIBS LT MIN 3V W CXR1V, 05/21/2020, 9:11. FINDINGS: Surgical changes and devices: None. Lungs and pleura: Lungs are clear. No pleural effusions or pneumothorax. Mediastinum: Mediastinal contours appear normal. Heart size is normal. Bones and chest wall: No suspicious new bony lesions. Overlying soft tissues appear unremarkable. IMPRESSION: Prior chest plain films with rib films series has reported multiple minimally displaced lower left rib fractures. No pneumothorax has developed. No pleural effusion or pulmonary contusion is found. Dictated by: Saroj Villanueva M.D. on 05/22/2020 at 11:34 Approved by: Saroj Villanueva M.D. on 05/22/2020 at 11:47
--- NOTE | 2020-05-22 11:13 | OT.IP.EVAL ---
Past Medical History (Last Reviewed 05/21/20 @ 09:05 by Demetra Calderón DO) Dementia (Acute) No significant medical problems (Acute) Parkinsons (Acute) Occupational Therapy Inpatient Evaluation/Re-Eval M1 PT/OT-IP Prior Functional Status Start: 05/21/20 10:34 Freq: Status: Active Protocol: Document 05/22/20 11:28 CGR (Rec: 05/22/20 11:51 CGR [email or web address]) Medical Review Prior Functional Status Medical History Reviewed Yes Communication Pt has history of dementia. Able to make needs known Mobility and Gait Pt uses a 4WW for household and short distance community ambulation. He calls his walker Pilo. Pt's , Mirna states he can walk a city block with his walker. Pt 's reports he does best with mobility in the mornings and that his performance declines as the day wears on. When he forgets to use his walker, he will often begin toe-walking and then running which tends to result in a fall. Pt uses a manual wheelchair occasionally - typically when he goes to appointments in [place]. Mirna reports increased incidence of falls recently. Pt has Parkinson's disease and is followed by Dr. Hamilton Smith at [facility] in [place]. There have been no recent changes in his medications, including carbidopa levodopa. Activities of Daily Living and IADL's Pt's spouse provides total assist with dressing; set up, standby, and some washing/ drying assist for showers; and assist with toileting both for positioning on the toilet and for hygiene. Prior Functional Level (Other details) Pt and his have their [place] home on the market. They have been staying in their [facility] since early January. Mirna reports she has been struggling to get a permit for an elevator in the [facility] since the downstairs has only a tub and the pt has difficulty getting in and out of the tub. Walk in shower is upstairs and pt has been able to manage the stairs until recently. Pt's recently began jasmina for caregiver assist with [facility]. Caregiver has been in the home for the past month, starting at [phone] M-F which recently increased to [phone] M-F. Social History Household Members spouse Living Arrangements House Number of Floors (Floors) Two Floors Number of Stairs To Enter/Railing? Level entrance. Pt is able to stay on the main level but he and his prefer to use the walk in shower upstairs. To reach the second level, there are 5 steps with right rail ascending, a landing, and another 6 steps with left rail ascending. Home Environment High Toilet,Walk in Shower,Tub /Shower Home Equipment Four Wheel Walker,Manual Wheelchair,Grab Bars In Shower Additional Social History Comment Pt lives with his , Mirna, who provides primary caregiving. The couple have two daughters - one lives in [place] and the other lives in [place]. All PLOF and home set up obtained from P.T . note. M2 OT-IP Current Condition Start: 05/22/20 11:28 Freq: Status: Active Protocol: Document 05/22/20 11:28 CGR (Rec: 05/22/20 11:51 CGR [email or web address]) Occupational Therapy Current Condition Current Condition Evaluation Date 05/22/20 Treatment Diagnosis fall with rib fx, hx of parkinsons and dementia Diagnosis Onset Date 05/21/20 M3 OT- IP Subjective and Pain Start: 05/22/20 11:28 Freq: Status: Active Protocol: Document 05/22/20 11:28 CGR (Rec: 05/22/20 11:51 CGR [email or web address]) OT- Subjective Occupational Therapy Visit Type Type Initial Evaluation Visit Start Time 10:45 Visit Stop Time 11:13 Total Visit Minutes 23 Notes Coeval with P.T. Occupational Therapy Visit Comments Patient/Caregiver Goals Pt's is present throughout session. Per , she is upset about a discharge for today or tomorrow, a medication descrepency, and not getting correct information yesterday about her husbands ability to stay in the hospital. OT Pain Assessment Pain When Pain Assessed During Mobility Pain Present Pain Present Pain Reported Location left back Scale Used Pt unable to state Pain Behaviors Facial Grimacing,Guarding, Wincing Management Techniques Modification of Treatment,Re- positioning M4 OT- IP ADL's Start: 05/22/20 11:28 Freq: Status: Active Protocol: Document 05/22/20 11:28 CGR (Rec: 05/22/20 11:51 CGR [email or web address]) OT [id number] Comments OT Self-Feeding Comments Not meal time but nursing present when OT entered and pt was having difficulty swallowing pill. OT ADL-Grooming Comments OT Grooming Comments Not performed OT ADL-Oral Care Comments Oral Care Comments Not performed OT ADL-Dressing General Eval Lower Body Dressing Ability Total Assistance Areas Needing Assistance Socks Comments OT Dressing Comments supine in bed OT ADL-Toileting Comments OT Toileting Comments Not performed but noted that pt appeared to have passed gas with mobility. OT ADL-Bathing Comments OT Bathing Comments not performed M5 OT- IP IADL's Start: 05/22/20 11:28 Freq: Status: Active Protocol: Document 05/22/20 11:28 CGR (Rec: 05/22/20 11:51 CGR [email or web address]) OT-Instrumental Activities of Daily Living Deficits IADL Deficits Identified Deficits Home Safety Awareness Awareness of Need for Assistance at Home Decreased Awareness Ability to Problem Solve Emergency Unable to Problem Solve Situations Medication Management Medication Management Caregiver Administers Money Management Money Management Caregiver Provides Assistance Meal Preparation Meal Preparation Caregiver Provides Assist Arts Therapist Arts Therapist Caregiver Provides Assist Driving Driving Comments Pt does not drive M6 OT- IP Functional Cognition Start: 05/22/20 11:28 Freq: Status: Active Protocol: Document 05/22/20 11:28 CGR (Rec: 05/22/20 11:51 CGR [email or web address]) Cognitive Factors Limiting Selfcare Function Cognitive Ability Level of Alertness Alert,Confusional State Patient Orientation Name Attention Span Ability Unable to Focus,Unable to Sustain Attention Ability to Follow Commands Able to Follow One Step Commands with Increased Time, Able to Follow One Step Commands with Repetition Cognitive Comments Cognitive Assessment Comments Pt is limited on his mobility at this time. OT- Vision and Hearing OT- Vision Assessment Vision Assessment Comments Unable to assess at this time M7 OT- IP Mobility and Balance Start: 05/22/20 11:28 Freq: Status: Active Protocol: Document 05/22/20 11:28 CGR (Rec: 05/22/20 11:51 CGR [email or web address]) OT- Bed Mobility Assessment Supine to Sit Supine to Sit Assist Total Assistance,2 Person Assistance,Head of Bed Elevated Sit to Supine Sit to Supine Assist Total Assistance,2 Person Assistance Scooting Scooting to Edge of Bed Total Assistance,2 Person Assistance OT-Transfer Assessment Sit to and From Stand Sit to and from Stand Maximum Assistance,2 Person Assistance Transfers Transfer Ability Maximum Assistance,2 Person Assistance Technique Transfer Destination Bed Transfer Technique Stand Step Pivot Devices Transfer Assistive Devices Gait Belt,Front Wheeled Walker Comments Mobility Comments Pt was able to take steps with max x 2 and poor following of commands for safe mobility. OT- Gait Assessment Comments Gait Ability Comments Unable to assess OT- Balance Assessment Sitting Balance and Reactions Static Sitting Balance Ability Poor Dynamic Sitting Balance Ability Poor Comments Other Balance Tests/Deviations/Treatment Pt was initially able to sit : EOB with CGA to min a but suddenly needed max a for sitting balance after sitting ~30 seconds and was unable to follow commands to regain sitting balance. M8 OT- IP Objective Assessments Start: 05/22/20 11:28 Freq: Status: Active Protocol: Document 05/22/20 11:28 CGR (Rec: 05/22/20 11:51 CGR [email or web address]) OT Gross Range of Motion Upper Extremity Range of Motion ROM Impairments unable to check on this date. OT Strength Upper Extremity Strength Assessment Within Functional Limits Comments Strength Comments pt demonstrates good strength with use of walker but formal assessment was not performed OT- Coordination Assessment Comments Coordination Comments Pt unable to participate on this date. OT-Muscle Tone Assessment Comments Muscle Tone Comments abnormal muscle tone and posturing consistent with parkinsons. Per , pt did not recieve the full dosage of parkinsons medications and his movement and tone is consistent with difficulty he has without his medications. OT Sensation Assessment Edema Edema Absent M9 OT- IP Assessment and Plan Start: 05/22/20 11:28 Freq: Status: Active Protocol: Document 05/22/20 11:28 CGR (Rec: 05/22/20 11:51 CGR [email or web address]) OT Summary Assessment and Plan Potential Rehabilitation Potential Good Analytic Complexity at Evaluation Moderate Summary OT Impairments Pain,Balance,Coordination, Functional Cognition, Functional Mobility,Self- Feeding,Grooming,Dressing, Toileting,Bathing,Toilet Transfers,Shower Transfers, Activity Tolerance Progress Towards Goals Slow Progress due to Medical Issues Assessment Summary Pt presents as a moderate complexity evalution. Pt demonstrates declines to cognition, endurance, functional mobility, coordination, and all ADLs. Pt will benefit from continued OT services. Recommend SNF for continued therapy services at this time as pt would not be safe for discharge home with his current mobility. Goals Self-Feeding Goal Standby Assistance Grooming Goal Standby Assistance Bathing Goal Minimal Assistance Toilet Transfer Goal Minimal Assistance Shower Transfer Goal Minimal Assistance Days to Meet Goals 7 Frequency of Treatment Frequency Of Treatment Once a Day Treatment Plan OT Treatment Plan ADL Training,Functional Cognition Training,Functional Mobility,Patient/Family Education,Discharge Planning Discharge Recommendations OT Discharge Recommendations SNF Rehab Home Equipment Needs If pt goes home he will need a BSC, FWW, tub transfer bench, hospital bed. Recommend hand held shower and grab bars at the toilet and in the tub/ shower. Transportation Needs at Discharge Stretcher/Ambulance
[2020-05-22 11:45] VITALS: BP 105/78; PULSE 99; RESP 16; TEMP 37.6; O2SAT 95
[2020-05-22] MEDS: OXYCODONE/ACETAMINOPHEN 5/325 TABLET 1 TAB PO ×2 (12:01→17:31)
[2020-05-22] MEDS: ACETAMINOPHEN 325 MG TABLET 650 MG PO ×2 (12:01→17:03)
--- NOTE | 2020-05-22 12:11 | PT.IPTN ---
Physical Therapy Treatment Note M2 PT-IP Current Condition Start: 05/21/20 10:34 Freq: Status: Discharge Protocol: Document 05/21/20 14:51 AW (Rec: 05/21/20 15:37 AW [id number]) Physical Therapy Current Condition Current Condition Evaluation Date 05/21/20 Treatment Diagnosis GLF, left rib fractures, PD, difficulty in walking Onset Date 05/18/20 Precautions Other Precautions high risk of falls M3 PT-IP Subjective Start: 05/21/20 10:34 Freq: Status: Discharge Protocol: Document 05/22/20 11:51 AW (Rec: 05/22/20 12:10 AW [id number]) Subjective Physical Therapy Visit Type Type Treatment Note Visit Start Time 10:47 Visit Stop Time 11:12 Total Visit Minutes 25 Notes Pt's present throughout session. Co-tx with OT. Physical Therapy Visit Comments Patient Comments Pt is less communicative today Therapy Pain Assessment Pain When Pain Assessed During Mobility Pain Present Pain Present Denied Pain FLACC Pain Scale Face Frequent/constant frown Legs Uneasy, restless, tense Activity Squirming,shifting Cry No cry (awake or asleep) Consolability Reassurable with touch FLACC Total 5 M4 PT-IP Mobility and Gait Start: 05/21/20 10:34 Freq: Status: Discharge Protocol: Document 05/22/20 11:51 AW (Rec: 05/22/20 12:10 AW [id number]) PT-Bed Mobility Assessment Supine to Sit Supine to Sit Total Assistance,2 Person Assistance,Head of Bed Elevated Sit to Supine Sit to Supine Total Assistance,2 Person Assistance Scooting Scooting to Edge of Bed Dependent PT-Transfer Assessment Sit to and From Stand Sit to and from Stand Maximum Assistance,2 Person Assistance,Use of Upper Extremities Transfers Transfer Destination Bed Transfer Technique Forward/Backward Scoot Transfer Ability Level of Assist Maximum Assistance,2 Person Assistance Comments Mobility Comments Pt sitting up in bed upon PT arrival with at bedside. Pt was exhibiting greater athetoid movement of the mouth today along with cervical and BLE dystonia, increased rigidity of BUE. He required total assist of two for supine to sit with pt showing signs of increased pain. He was unable to sit EOB without constant therapist support. Rigidity of his UE made positioning difficult. Pt required max assist of two to stand including assist to position his hands on the FWW. He was able to stand ~2 minutes and to take a few halting steps forward, back and to the side with max assist x 2 and FWW. Pt required max assist to sit EOB and for sit to supine transfer. Pt was positioned on the bed with call light in reach and his visiting at bedside. Gait Assessment Gait Gait Assistance Required: Maximum Assistance,2 Person Assist Assistive Devices Assistive Device Gait Belt,Front Wheeled Walker Gait Deviations General Gait Pattern Decreased Stride Length, Decreased Feet Clearance, Festinating,Flexed Trunk, Narrow Based Gait Factors Limiting Gait Function Factors Limiting Gait Function Abnormal Tonal Influences, Decreased Activity Tolerance, Decreased Sensation,Decreased Strength,Difficulty Following Directions,Incoordination, Limited Range of Motion,Pain, Poor Balance,Poor Safety Awareness Comments Gait Comments Forward, backward, and side steps only for a max of 2 feet . See mobility comments for details. PT-Balance Assessment Sitting Balance and Reactions Static Sitting Balance Ability Poor Dynamic Sitting Balance Ability Poor Standing Balance and Reactions Static Standing Balance Ability Poor Dynamic Standing Balance Ability Poor Device Used FWW M5 PT-IP Objective Assessments Start: 05/21/20 10:34 Freq: Status: Discharge Protocol: Document 05/21/20 14:51 AW (Rec: 05/21/20 15:37 AW [id number]) Orientation Orientation/Cognition Level of Alertness Confusional State Orientation Name,Place Safety Awareness Decreased Safety Awareness Memory Description Short Term Impaired,Automobile Engine Assembler Impaired Comments Pt has hypophonia. He was oriented to self and could say he was in the hospital but was not sure where. He was not otherwise oriented. Pt unable to provide details of his falls or of his home environment. Gross Range of Motion Upper Extremity ROM Assessment Bilaterally Impaired Impairments secondary to pain Lower Extremity ROM Assessment Within Functional Limits Strength Upper Extremity Strength Assessment Bilaterally Impaired Lower Extremity Strength Assessment Bilaterally Impaired Hip 4/5 Knee 4+/5 Ankle 4/5 Coordination Assessment Gross Coordination Gross Coordination Impaired Assessment Finger to Nose Test Moderate Impairment Sensation Assessment Sensation Proprioception (Position) Impaired Comments Sensation Comments Hypokinesia and bradykinesia indicative of sensory mismatch between perceived and actual motor output. Muscle Tone Muscle Tone WNL No Comments Muscle Tone Comments Rigidity of trunk. M6 PT-IP Treatment Start: 05/21/20 10:34 Freq: Status: Discharge Protocol: Document 05/22/20 11:51 AW (Rec: 05/22/20 12:10 AW [id number]) Physical Therapy Treatment Education Education Provided Precautions,Safety Other Treatments Other Treatment Performed Spent time speaking with the pt's about options for home care vs SNF. M7 PT-IP Assessment and Plan Start: 05/21/20 10:34 Freq: Status: Discharge Protocol: Document 05/22/20 11:51 AW (Rec: 05/22/20 12:10 AW [id number]) PT Summary Assessment and Plan Potential Rehabilitation Potential Fair Status of Condition at Evaluation Unstable Summary Impairments Pain,ROM,Strength,Balance, Coordination,Sensation,Tone, Cognition,Bed Mobility, Transfers,Gait,Activity Tolerance Progress Towards Goals Slow Progress due to Medical Issues Assessment Summary Per nursing, pt has received less than his typical dose of carbidopa levodopa since admit yesterday. This has been corrected but the pt is showing signs of increased rigidity and dystonias this date compared with Friday session. Pt required max assist x 2 for sit to stand and total assist x 2 for bed mobility. Pt will require SNF rehab at discharge which was discussed with his . She is reluctant and would like more information about her options. If pt were to discharge home, he would need a BSC, tub transfer bench, hospital bed, and FWW. PT will continue to follow and will arrange caregiver training for his to be conducted prior to discharge. Goals Bed Mobility Goal Contact Guard Assistance Transfer Goal Standby Assistance,Four Wheeled Walker Gait Goal Standby Assistance,Four Wheel Walker Gait Distance 150 Other Goals - up/down 5 steps with left rail ascending CGA - up/down 6 steps with right rail ascending CGA Days to Meet Goals 15 Frequency of Treatment Frequency Of Treatment Once a Day Treatment Plan Physical Therapy Treatment Plan Bed Mobility Training,Transfer Training,Gait Training, Therapeutic Exercise,Balance Retraining,Discharge Planning, Hot or Cold Pack,Neuromuscular Re-ed,Coordination Retraining Other Recommendations and Next Treatment caregiver training with pt's Focus Recommendations To Nursing Amount of Assist Needed 2 Person Assist,3 or More Person Assist Discharge Recommendations PT Discharge Recommendations Home with Assistance,Home with 24/7 Assist,SNF Rehab Other Discharge Recommendations SNF (preferred) vs home with 24/7 assist and HH Equipment Needed for Home Before BSC, tub transfer bench, Discharge hospital bed, and FWW Transportation Needs at Discharge Wheelchair/Cabulance,Stretcher /Ambulance
--- NOTE | 2020-05-22 12:22 | ST.IPIE ---
Visit Care Team Role Provider Type Eddie Wilder MD Other Providers Physician Specialty: General Surgery Address: [address] [place] [address], [id number] Email: [email or web address] Demetra Calderón DO Emergency Provider Physician Referring Provider Specialty: Emergency Medicine Address: [address] [place] [address], [id number] Email: [email or web address] Giulia Gomez MD Admit Provider Physician Attending Provider Specialty: Internal Medicine Address: [address] [place] [address], [id number] Email: [email or web address] Medical History (Last Reviewed 05/21/20 @ 09:05 by Demetra Calderón DO) Dementia (Acute Medical) No significant medical problems (Acute Medical) Parkinsons (Acute Medical) ST IP Initial Evaluation Report BIOMEDICAL ANALYTICAL SCIENTIST Clinical Swallow Evaluation Start: 05/22/20 11:42 Freq: Status: Active Protocol: Document 05/22/20 11:42 DIANNA (Rec: 05/22/20 11:44 DIANNA [email or web address]) Clinical Swallow Evaluation Session Time Visit Start Time 09:55 Visit Stop Time 10:30 Total Visit Minutes [address] Gomez Reason for Referral Parkinson's disease, dementia Setting Assessment Location Acute Care Visit Type Note Type Initial Evaluation Next Note Type Next Note Type Treatment Note Patient Information Identification Type Name,ID Card History Per H&P: The pt is a 75-year- old male with a history of Parkinson's disease and dementia who fell at home a few days ago. He was evaluated in the emergency room and found to have multiple rib fractures. Per : The pt has occasional difficulty initiating swallow, involving several attempts and laryngeal pumping. Tends to have excess mucus that he coughs up several times a day. Denied seasonal allergies. The pt's vocal loudness is diminishing, though he is responsive to verbal reminders to increase volume. His memory is poor d/t dementia; therefore he requires many repetitions to increase memory of information . At home, the pt consumes a soft, moist diet with solids cut into small pieced by spouse. He has occasional difficulty orally accepting pills, requiring placement on tongue by spouse. Once accepted, he is able to swallow with water. Subjective Observations The pt was lying in bed awake but somnolent, with at bedside. During swallow evaluation, Dr. Gomez and Presiding Steward arrived for discharge assessment. Appears pt will d/ c home with HH when medically stable. The pt greeted me upon my arrival and introduction. He was somnolent throughout the evaluation, requiring prompts to look at bolus prior to intake. He was minimally conversant, though pleasant and displayed appropriate humor. His was present throughout the eval and provided case history. The pt was positioned nearly upright in bed, limited d/t pt wincing from pressure on my spine. Evaluation Liquids Trialed Thin Solids Trialed Puree,Dysphagia Mechanical, Mechanical Soft Administration Type Tea Spoon,Straw,Self-Feeding, Dependent Feeding Oral Impairment WFL Oral Strategies Upright at 90 degrees,Dementia Strategies Oral Phase Comments Oral Peripheral Exam: Symmetrical features. Reduced lingual strength and ROM. Adequate lip seal. Reduced coordination secondary to dementia vs oral motor function. Pt followed most verbal commands with occasional need for demonstration. Mucosa was pink and healthy looking. Soft palate elevated upon phonation . Hyolaryngeal elevation/ excursion WNL via palpation. Pt has natural dentition in good condition for age. Significant tremors were observed primarily in lower limbs but also upper limbs/ hands. The pt was able to self -feed from tsp but with tremors. Spouse stated she often needs to assist with feeding. Oral Phase: WFL. Pt occasionally required verbal prompts for oral acceptance, usually to open eyes and visualize bolus prior to intake. Lip seal, bolus prep and oral clearance appear WNL. Occasional delayed swallow trigger noted, increasing pt's risk of posterior spillage to pharynx. No laryngeal pumping for swallow initiation was observed. Pharyngeal Impairment Mildly Impaired Pharyngeal Strategies Sitting Upright (90 deg),Small Bites and Sips Pharyngeal Phase Comments Pt exhibited mildly wet voice x1 following first sip of thin liquid from straw. This cleared with subsequent swallow. No other overt s/sx were observed. Findings Dysphagia Type Mild oropharyngeal dysphagia Rehabilitation Potential Fair Impressions The pt presented mild oropharyngeal dysphagia secondary to reduced strength and coordination of swallow musculature, consistent with Parkinson's disease. The pt required occ v/v prompts secondary to dementia and will require 1:1 assistance for feeding d/t Parkinsonian tremors, as well as dementia. Further evaluation will be conducted during hospital stay . Diet Recommendations Liquids Order Thin Diet Order Dysphagia Mechanical Medication Recommendations As Tolerated Additional Dietary Needs 1:1 Assistance Aspiration Precautions Recommended Precautions Upright at 90 Degrees,Frequent Rest Periods,Small Bites/Sips Additional Precautions Limited time fully upright to reduce pain Treatment Plan Placement Recommendations after Home with Home Health Discharge Appropriate for Therapy Yes Therapy Recommendations Ongoing swallow evaluation with modifications to diet as indicated. Pt/Spouse education RE potential impacts of PD on swallow, voice, and cognitive communication skills. Dysphagia Goals 1. The pt will follow safe swallow strategies with verbal prompts as needed to reduce risk of aspiration. 2. The pt will tolerate least restrictive diet to meet his nutrition and hydration needs. BIOMEDICAL ANALYTICAL SCIENTIST Follow Up Daily during hospital course. BIOMEDICAL ANALYTICAL SCIENTIST services after hospital d/c.
[2020-05-22 12:58] VITALS: TEMP 36.6
--- NOTE | 2020-05-22 13:21 | PM.PN.1 ---
Subjective Subjective Date Patient Seen: 05/22/20 Interval history: 75-year-old male admitted to the hospital following a fall. Patient suffered multiple fractures of the left ribs. He continues to have significant pain with minimal activity. In addition the patient has a history of Parkinson's disease with dementia. He has been intermittently confused. His Parkinson's medications were underdosed and he is resumed his usual home medication. His was at the bedside. She has concerns about being able to care for him at home. Will continue with PT OT and arrange for caregiver training today with anticipating discharge home tomorrow. Exam Vital Signs (past 8 hours): - 05/22/20 07:32 05/22/20 11:45 05/22/20 12:58 Temperature 97.8 F 99.7 F H 98 F Pulse Rate 90 99 H Respiratory Rate 15 16 Blood Pressure 147/94 H 105/78 Pulse Oximetry 95 95 Oxygen Delivery Method Room Air Oxygen Flow Rate 0 Narrative Exam Narrative: Confused albeit pleasant gentleman resting comfortably Lungs: Decreased breath sounds but clear to auscultation Cardiac exam: Regular rate and rhythm normal S1-S2 Abdomen: Soft nontender nondistended Extremities: No edema Objective Labs Result Diagrams: 05/21/20 09:00 05/21/20 09:28 Assessment & Plan Assessment & Plan narrative: Impression 1. 75-year-old male status post ground level fall now with multiple rib fractures on the left -suspect underlying osteoporosis contributing to the fracture -patient continues to have difficulty with mobility given pain from the rib fracture -will continue with physical therapy and occupational therapy -will continue caregiver training -will continue Tylenol and pain medications as needed 2. Parkinson's disease -history of gait instability related to Parkinson's -resume his usual home medication of carbidopa levodopa 3 tabs p.o. t.i.d. -continue PT -speech evaluation given complaints of swallowing abnormality 3. Dementia Continue Seroquel Anticipate discharge home tomorrow with home health following caregiver training today. Quality VTE Deep Vein Thrombosis/Pulmonary Embolism Present on Admission: No
[2020-05-22] MEDS: CARBIDOPA-LEVODOPA 25/100 TABLET 3 EACH PO ×2 (14:49→20:16)
[2020-05-22 16:00] VITALS: BP 115/60; PULSE 83; RESP 16; TEMP 36.7; O2SAT 94
[2020-05-22 20:10] VITALS: BP 112/73; PULSE 84; RESP 16; TEMP 36.8; O2SAT 95
[2020-05-22] MEDS: SENNOSIDES 8.6 MG TABLET 17.2 MG PO (20:16)
[2020-05-23 01:30] VITALS: BP 140/87; PULSE 73; RESP 18; TEMP 36.7; O2SAT 93
[2020-05-23 03:21] VITALS: BP 153/74; PULSE 68; RESP 18; TEMP 36.7; O2SAT 93
[2020-05-23] MEDS: ACETAMINOPHEN 325 MG TABLET 650 MG PO ×2 (05:18→10:57)
[2020-05-23 07:15] VITALS: BP 151/102; PULSE 72; RESP 17; TEMP 37.1; O2SAT 95
[2020-05-23] MEDS: ENOXAPARIN 40 MG/0.4 ML SYRINGE SUBCUT (08:19)
[2020-05-23] MEDS: QUETIAPINE 25 MG TABLET PO (08:20)
[2020-05-23] MEDS: CARBIDOPA-LEVODOPA 25/100 TABLET 3 EACH PO (08:20)
[2020-05-23] MEDS: DOCUSATE 100 MG CAPSULE PO (08:20)
[2020-05-23] MEDS: IBUPROFEN 600 MG TABLET PO (08:20)
[2020-05-23] MEDS: SODIUM CHLORIDE 0.9% FLUSH 10 ML IV (08:21)
--- NOTE | 2020-05-23 09:14 | ST.IPDYTX ---
Visit Care Team Role Provider Type Eddie Wilder MD Other Providers Physician Specialty: General Surgery Address: [address] [place] [address], [id number] Email: [email or web address] Demetra Calderón DO Emergency Provider Physician Referring Provider Specialty: Emergency Medicine Address: [address] [place] [address], [id number] Email: [email or web address] Admit Provider Physician Attending Provider Specialty: Internal Medicine Address: [address] [place] [address], [id number] Email: [email or web address] SPECIAL AGENT Dysphagia Treatment Start: 05/23/20 09:02 Freq: Status: Active Protocol: Document 05/23/20 09:03 HALK (Rec: 05/23/20 09:13 LNK [id number]) Dysphagia Treatment Session Time Visit Start Time 08:35 Visit Stop Time 09:00 Total Visit Minutes 25 Setting Assessment Location Acute Care Visit Type Note Type Progress Note Next Note Type Next Note Type Progress Note Patient Information Identification Type Name,ID Wristband Subjective Observations Pt was sitting in bedside chair with breakfast tray. Treatment Liquids Trialed Thin Solids Trialed Mechanical Soft Administration Type Self-Feeding Oral Strategies Upright at 90 degrees,Lingual Sweep,Controlled Bite/Sip Size Pharyngeal Strategies Sitting Upright (90 deg),Small Bites and Sips Additional Dysphagia Treatment Pt remarked that he is very Strategies careful eating so as to avoid choking hazards Treatment Activities Pt had been eating breakfast. 1:1 assistance as provided as needed posted at bedside. According to nursing, pt self- fed most of his breakfast. It was reported that pt's hands were pretty shaky, but he managed to eat >50% of meal. Mechanical soft texture appears to be tolerated well at this time. Thin liquids with a straw also safely tolerated. Diet advance not recommended. Assessment Patient Response to Treatment Good Rehab Potential Fair Diet Recommendations Recommendations Continue Current Diet Additional Dietary Needs 1:1 Supervision,1:1 Assistance ,Encourage to Self-Feed, Reminders to Use Strategies Aspiration Precautions Recommended Precautions Upright at 90 Degrees, Alternate Liquids/Solids,Small Bites/Sips,Lingual Sweep, Check for Pocketing Treatment Plan Placement Recommendation after Discharge [facility] Facility,Home with Home Health Appropriate for Continued Therapy Yes: HH INSURANCE SPECIAL AGENT to follow up at home to assure diet tolerance Therapy Recommendations Ongoing swallow evaluation with modifications to diet as indicated. Pt/Spouse education RE potential impacts of PD on swallow, voice, and cognitive communication skills. Dysphagia Goals 1. The pt will follow safe swallow strategies with verbal prompts as needed to reduce risk of aspiration. 2. The pt will tolerate least restrictive diet to meet his nutrition and hydration needs. Follow Up Plan Daily during hospital course. HH INSURANCE SPECIAL AGENT services after hospital d/c.
--- NOTE | 2020-05-23 10:16 | P.DS_ITS ---
History of Present Illness History of Present Illness Date Patient Seen: 05/23/20 Time Patient Seen: 10:16 Chief complaint: Fall 2 days ago Narrative: As per Dr. Gomez, Patient is a 75-year-old male with a history of Parkinson's disease and dementia who fell at home a few days ago. Patient was brought in as he tried to slumped down and the caregiver captured him. He apparently hit the chair. He was evaluated in the emergency room and found to have multiple rib fractures. The patient is unable to provide any history and his has since left. He denies any shortness of breath, any pain at this time. She denies any nausea vomiting or diarrhea. His history is somewhat unreliable. Discharge Providers Provider Date of admission: 05/21/20 10:41 Discharge Date: 05/23/20 Consults: 05/21/20 10:04 Consult to Physical Therapy Evaluate & Treat Comment: broken ribs 7-11 on left Physician Instructions: Evaluate and Treat 05/21/20 10:37 Consult to General Surgery Stat Comment: Consulting Provider: Eddie Wilder Reason for consultation: mulitple rib fractures Has provider been notified: Yes 05/21/20 14:14 Consult to Discharge Planning Routine Comment: Consult to Occupational Therapy Evaluate & Treat Comment: Physician Instructions: Evaluate and treat Consult to Physical Therapy Evaluate & Treat Comment: Physician Instructions: Evaluate and Treat 05/22/20 09:25 Consult to Speech Therapy Evaluate & Treat Comment: Physician Instructions: Evaluate and treat 05/22/20 12:19 Consult to Home Health Routine Comment: DX: Fall at home Reason For Exam: PT/OT/RN/ST/NUCLEAR EQUIPMENT TEST ENGINEER Discharge provider: Guzman Perez DO Summary Hospital Course Discharge Diagnosis: 1. multiple rib fractures on the left, acute, present on admission, pathologic given mechanism. 2. Parkinson's disease, chronic, present on admission 3. Dementia, chronic, present on admission. Hospital Course: Jc Amaya is a 75-year-old male with a past medical history of Parkinson's disease and dementia who presented after a fall and suffered multiple left-sided rib fractures. Patient was a modified trauma and was seen by surgery. Initially there was some difficulty with pain control and mobility, however once pain was controlled and family underwent caregiver training patient was then discharged home. Upon discharge his pain significantly improved and he was requiring no more than Tylenol or Motrin which he will continue as an outpatient. He should continue his home dose of Parkinson's medications, and Seroquel at night for known dementia. He can follow-up with his primary care provider within the next month to check on his symptoms and ensure continued improvement. Exam Vital Signs (past 8 hours): - 05/23/20 03:21 05/23/20 07:15 Temperature 98.0 F 98.8 F Pulse Rate 68 72 Respiratory Rate 18 17 Blood Pressure 153/74 H 151/102 H Pulse Oximetry 93 95 Oxygen Delivery Method Room Air Oxygen Flow Rate 0 Narrative Exam Narrative: GENERAL APPEARANCE: Well developed, well nourished, elderly male in no acute distress. SKIN: Inspection of the skin reveals no rashes, ulcerations or petechiae. HEENT: Normocephalic atraumatic, extraocular muscles are intact, oropharynx is clear and mucous membranes are moist, neck is supple without adenopathy NECK: Supple and symmetric. There was no thyroid enlargement, and no tenderness, or masses were felt. CHEST: Normal AP diameter and normal contour without any kyphoscoliosis. Mild left-sided chest tenderness. LUNGS: Auscultation of the lungs revealed no wheezes, rhonchi, or rales. CARDIOVASCULAR: There was a regular rate and rhythm without any murmurs, gallops, rubs. Peripheral pulses were 2+ and symmetric. ABDOMEN: Soft and nontender with normal bowel sounds. No ascites was noted. MUSCULOSKELETAL: There was no tenderness or effusions noted. Muscle strength and tone were normal. EXTREMITIES: No cyanosis, clubbing or edema. NEUROLOGIC: Alert. Chronic cognitive impairment is evident. No focal deficits. Objective Labs Result Diagrams: 05/21/20 09:00 05/21/20 09:28 Discharge Plan Discharge Plan Patient Disposition: Home Health Service Discharge comment: You were admitted to the hospital with rib fractures. Your pain is improving and you're being discharged home. Please continue over the counter pain relief with either Tylenol or ibuprofen. No changes to your home medications are recommended at this time. Discharge orders & Medications Prescriptions: Continued carbidopa-levodopa 25-100 mg tablet 3 tab PO TID RF: 0 quetiapine 25 mg tablet 25 mg PO BID RF: 0 Discharge Health Status Health Concerns: rib fractures Diet/Activity/Treatments Diet: Diet as Tolerated Diet comment: As per speech therapy reccommendations Activity: As tolerated Visit Report/Discharge Packet Instructions: How to Choose and Use a Walker, DI for Rib Fracture, How to Prevent Falls, DI for Oropharyngeal Dysphagia Visit Report Forms: Patient Portal/API, Stroke Signs & Symptoms Discharge Data Attending Provider: Giulia Gomez Admit Date/Time: 05/21/20 10:41 Discharges patient from system. Discharge Date/Time: 05/23/20 11:40 Quality VTE Deep Vein Thrombosis/Pulmonary Embolism Present on Admission: No
--- NOTE | 2020-05-23 10:39 | PT.IPTN ---
Physical Therapy Treatment Note M2 PT-IP Current Condition Start: 05/21/20 10:34 Freq: Status: Discharge Protocol: Document 05/21/20 14:51 AW (Rec: 05/21/20 15:37 AW [id number]) Physical Therapy Current Condition Current Condition Evaluation Date 05/21/20 Treatment Diagnosis GLF, left rib fractures, PD, difficulty in walking Onset Date 05/18/20 Precautions Other Precautions high risk of falls M3 PT-IP Subjective Start: 05/21/20 10:34 Freq: Status: Discharge Protocol: Document 05/23/20 10:14 CLB (Rec: 05/23/20 12:14 CLB [id number]) Subjective Physical Therapy Visit Type Type Treatment Note Visit Start Time 10:14 Visit Stop Time 10:39 Total Visit Minutes 25 Notes Pt called stating she doesn't require CG training as she has care givers at home and needed to cloth picker pt when she arrives at 11:30. (per [employer] OFFICER ) Physical Therapy Visit Comments Patient Comments Pt agreeable to participate with therapy. Therapy Pain Assessment Pain When Pain Assessed During Mobility Pain Present Pain Present Denied Pain M4 PT-IP Mobility and Gait Start: 05/21/20 10:34 Freq: Status: Discharge Protocol: Document 05/23/20 10:14 CLB (Rec: 05/23/20 12:14 CLB [id number]) PT-Transfer Assessment Sit to and From Stand Sit to and from Stand Minimal Assistance,1 Person Assistance,Use of Upper Extremities Equipment Transfer Assistive Device Gait Belt,4 Wheeled Walker Orthotic/Prosthetic Devices or Brace: No Transfers Transfer Destination Chair Transfer Technique ambulated with 4WW Transfer Ability Level of Assist Minimal Assistance,Moderate Assistance Comments Mobility Comments Pt in chair upon arrival. Pt agreeable to ambulate with therapy team. Pt stood from chair requiring Min A and verbal and tactile cues for hand placement for safety. Pt requires one step commands as pt gets confused easily. Pt ambulated with 4WW in room but became confused where he was and was bumping into obstacles in room. Pt easily distracted and would stop ambulating and gaze around and had difficulty with verbal commands to make turns or begin to walk again. Pt was able to manage 4WW with assist but required assist with walker management with turns and chair approach. Pt required increased time before pt sat in chair requiring verbal and tactile cues for hand placement. Pt left in chair with chair alarm on, call light and all other needs within reach. Gait Assessment Gait Gait Assistance Required: Minimum Assistance,2 Person Assist Distance (Feet) 10 Assistive Devices Assistive Device Gait Belt,Front Wheeled Walker Gait Deviations General Gait Pattern Decreased Stride Length, Decreased Feet Clearance, Festinating,Flexed Trunk, Narrow Based Gait Factors Limiting Gait Function Factors Limiting Gait Function Abnormal Tonal Influences, Decreased Activity Tolerance, Decreased Sensation,Decreased Strength,Difficulty Following Directions,Incoordination, Limited Range of Motion,Pain, Poor Balance,Poor Safety Awareness Comments Gait Comments Pt required Min A x2 for ambulation and walker management with turns and chair approach. Pt with tight hotel casino floorperson on brakes of 4WW making it more difficult to maneuver walker. Stair Climbing Assessment Comments Stair Climbing Comments Not assessed. M5 PT-IP Objective Assessments Start: 05/21/20 10:34 Freq: Status: Discharge Protocol: Document 05/21/20 14:51 AW (Rec: 05/21/20 15:37 AW [id number]) Orientation Orientation/Cognition Level of Alertness Confusional State Orientation Name,Place Safety Awareness Decreased Safety Awareness Memory Description Short Term Impaired,Certified Financial Planner Impaired Comments Pt has hypophonia. He was oriented to self and could say he was in the hospital but was not sure where. He was not otherwise oriented. Pt unable to provide details of his falls or of his home environment. Gross Range of Motion Upper Extremity ROM Assessment Bilaterally Impaired Impairments secondary to pain Lower Extremity ROM Assessment Within Functional Limits Strength Upper Extremity Strength Assessment Bilaterally Impaired Lower Extremity Strength Assessment Bilaterally Impaired Hip 4/5 Knee 4+/5 Ankle 4/5 Coordination Assessment Gross Coordination Gross Coordination Impaired Assessment Finger to Nose Test Moderate Impairment Sensation Assessment Sensation Proprioception (Position) Impaired Comments Sensation Comments Hypokinesia and bradykinesia indicative of sensory mismatch between perceived and actual motor output. Muscle Tone Muscle Tone WNL No Comments Muscle Tone Comments Rigidity of trunk. M6 PT-IP Treatment Start: 05/21/20 10:34 Freq: Status: Discharge Protocol: Document 05/22/20 11:51 AW (Rec: 05/22/20 12:10 AW [id number]) Physical Therapy Treatment Education Education Provided Precautions,Safety Other Treatments Other Treatment Performed Spent time speaking with the pt's about options for home care vs SNF. M7 PT-IP Assessment and Plan Start: 05/21/20 10:34 Freq: Status: Discharge Protocol: Document 05/23/20 10:14 CLB (Rec: 05/23/20 12:14 CLB [id number]) PT Summary Assessment and Plan Potential Rehabilitation Potential Fair Status of Condition at Evaluation Unstable Summary Impairments Pain,ROM,Strength,Balance, Coordination,Sensation,Tone, Cognition,Bed Mobility, Transfers,Gait,Activity Tolerance Assessment Summary Pt improving with required assist with sit<>stand and ambulation but continues to have a difficult time following commands and confusion. Pt came to cloth picker pt but had appointment to meet with care givers at her home and declined CG training. Goals Bed Mobility Goal Contact Guard Assistance Transfer Goal Standby Assistance,Four Wheeled Walker Gait Goal Standby Assistance,Four Wheel Walker Gait Distance 150 Other Goals - up/down 5 steps with left rail ascending CGA - up/down 6 steps with right rail ascending CGA Days to Meet Goals 15 Frequency of Treatment Frequency Of Treatment Once a Day Treatment Plan Physical Therapy Treatment Plan Bed Mobility Training,Transfer Training,Gait Training, Therapeutic Exercise,Balance Retraining,Discharge Planning, Hot or Cold Pack,Neuromuscular Re-ed,Coordination Retraining Recommendations To Nursing Amount of Assist Needed 1 Person Assist Discharge Recommendations PT Discharge Recommendations Home with Assistance,Home with 24/7 Assist,SNF Rehab Other Discharge Recommendations SNF (preferred) vs home with 24/7 assist and HH Equipment Needed for Home Before BSC, tub transfer bench, Discharge hospital bed, and FWW Transportation Needs at Discharge Private Vehicle
--- NOTE | 2020-05-23 11:10 | CM.DPC ---
DCP cont: Faxed F2F and home health order to [facility] at fax # [phone] (with a note stating the discharge summary would follow once completed by the MD). Fax confirmation scanned in. Rosio Jacobson, Care Resident Care Associate
--- NOTE | 2020-05-23 11:20 | OT.IP.TRT ---
Occupational Therapy Treatment Note M2 OT-IP Current Condition Start: 05/22/20 11:28 Freq: Status: Active Protocol: Document 05/22/20 11:28 CGR (Rec: 05/22/20 11:51 CGR [email or web address]) Occupational Therapy Current Condition Current Condition Evaluation Date 05/22/20 Treatment Diagnosis fall with rib fx, hx of parkinsons and dementia Diagnosis Onset Date 05/21/20 M3 OT- IP Subjective and Pain Start: 05/22/20 11:28 Freq: Status: Active Protocol: Document 05/23/20 09:38 [facility] (Rec: 05/23/20 11:47 [facility] [id number]) OT- Subjective Occupational Therapy Visit Type Type Treatment Note Visit Start Time 09:38 Visit Stop Time 11:20 Total Visit Minutes 41 Notes Pt seen for split treatment [id number], and [id number] with for caregiver training. Occupational Therapy Visit Comments Patient Comments Pt mainly just orienated to name. M4 OT- IP ADL's Start: 05/22/20 11:28 Freq: Status: Active Protocol: Document 05/23/20 09:38 [facility] (Rec: 05/23/20 11:47 [facility] [id number]) OT [id number] Comments OT Self-Feeding Comments Not at meal time. OT ADL-Grooming General Evaluation Grooming Ability Total Assistance Comments OT Grooming Comments Aid assist pt. OT ADL-Dressing General Eval Upper Body Dressing Ability Total Assistance Lower Body Dressing Ability Total Assistance Comments OT Dressing Comments CHEESH-NA assist to get clothing on and second person needed while standing to help pull pants up over his hips. OT ADL-Toileting Comments OT Toileting Comments Pt is incontinent. OT ADL-Bathing Bathing Type Bathing Type Sponge Bath General Evaluation Bathing Ability Total Assistance Comments OT Bathing Comments Total assist for sponge bath. M5 OT- IP IADL's Start: 05/22/20 11:28 Freq: Status: Active Protocol: Document 05/22/20 11:28 CGR (Rec: 05/22/20 11:51 CGR [email or web address]) OT-Instrumental Activities of Daily Living Deficits IADL Deficits Identified Deficits Home Safety Awareness Awareness of Need for Assistance at Home Decreased Awareness Ability to Problem Solve Emergency Unable to Problem Solve Situations Medication Management Medication Management Caregiver Administers Money Management Money Management Caregiver Provides Assistance Meal Preparation Meal Preparation Caregiver Provides Assist Medicare Interviewer Medicare Interviewer Caregiver Provides Assist Driving Driving Comments Pt does not drive M6 OT- IP Functional Cognition Start: 05/22/20 11:28 Freq: Status: Active Protocol: Document 05/23/20 09:38 [facility] (Rec: 05/23/20 11:47 [facility] [id number]) Cognitive Factors Limiting Selfcare Function Cognitive Ability Level of Alertness Alert,Confusional State Patient Orientation Name Attention Span Ability Unable to Focus,Unable to Sustain Attention Ability to Follow Commands Able to Follow One Step Commands with Increased Time, Able to Follow One Step Commands with Repetition Cognitive Comments Cognitive Assessment Comments Pt needing step by step instructions, tactile cues and visual cues to follow. Educated to that it is best for pt to have a routine with structure at home. M7 OT- IP Mobility and Balance Start: 05/22/20 11:28 Freq: Status: Active Protocol: Document 05/23/20 09:38 [facility] (Rec: 05/23/20 11:47 [facility] [id number]) OT-Transfer Assessment Sit to and From Stand Sit to and from Stand Minimal Assistance,Moderate Assistance,1 Person Assistance ,2 Person Assistance Transfers Transfer Ability Minimal Assistance,Moderate Assistance,2 Person Assistance Technique Transfer Destination Bed,Bedside Commode Transfer Technique Stand Step Pivot Devices Transfer Assistive Devices Gait Belt,Front Wheeled Walker Comments Mobility Comments Pt various to come to stand at time able to stand on his own and at times needing MODA X 2 . Pt's states will just mainly use WC at home and just transfer him from place to place. Pt's states able to get all the equipment needs and that pt will now be staying on the main level and caregiver to stay with them for two weeks to assist initially. OT- Balance Assessment Sitting Balance and Reactions Static Sitting Balance Ability Fair Dynamic Sitting Balance Ability Poor Standing Balance and Reactions Static Standing Balance Ability Poor Dynamic Standing Balance Ability Poor Comments Other Balance Tests/Deviations/Treatment Pt fluctuate with his mobility : needs pending his level of understanding. When getting dressed pt able to lean forwards to reach his feet and also able to stand with CGA. However when trying to get pt to transfer needing MODA x2. M9 OT- IP Assessment and Plan Start: 05/22/20 11:28 Freq: Status: Active Protocol: Document 05/23/20 09:38 [facility] (Rec: 05/23/20 11:47 [facility] [id number]) OT Summary Assessment and Plan Potential Rehabilitation Potential Good Analytic Complexity at Evaluation Moderate Summary OT Impairments Pain,Balance,Coordination, Functional Cognition, Functional Mobility,Self- Feeding,Grooming,Dressing, Toileting,Bathing,Toilet Transfers,Shower Transfers, Activity Tolerance Progress Towards Goals Progressing Toward Goals Assessment Summary Pt moving better today and pt' s able to set-up all equipment needs and hire a caregiver as well. Went over caregiver training for pt for OT needs and pt's states good understanding for all needs. Goals Self-Feeding Goal Standby Assistance Grooming Goal Standby Assistance Bathing Goal Minimal Assistance Toilet Transfer Goal Minimal Assistance Shower Transfer Goal Minimal Assistance Days to Meet Goals 6 Treatment Plan OT Treatment Plan ADL Training,Functional Cognition Training,Functional Mobility,Patient/Family Education,Discharge Planning Discharge Recommendations OT Discharge Recommendations Home with 24/ Assist,Home Health Home Equipment Needs WC, BSC, FWW, tub transfer bench, hospital bed, HHSP, and grab bars. Transportation Needs at Discharge Private Vehicle
--- NOTE | 2020-05-23 12:20 | PC.NURSE ---
Discharge: Spouse had several concerns about pt coming home and the care received. Allowed to verb her feelings, first concernis having to get everything so rapidly done and she felt the planning could be better. Second her spouse was very sedated appearing yesterday. Today he got ibuprofen and tylenol and is responsive to his name and follows commands. He is globally disoriented but he recognizes spouse. She feels he is more to his baseline. Third was the paperwork for home health arrived and it had his name as Hira instead of Jc. Kasey from notified and the paper work was sent correctly, had been changed at the agency. She will speak with spouse later Lastly was the way he was treated in general, such as MD coming into room and not speaking with pt or examining him. (Md sees several times often and it may have occurred earlier. The way people spoke in general to her and her . She was given [employer] number and discussed that she was the one who did clinical quality rn. Spouse seemed satisfied after communicating her concerns. Reviewed d/c packet with spouse. No rx's, discussed use of tylenol and ibuprofen. Rest of meds are unchanged. Questions answered. Pt d/c home via auto with spouse.
--- NOTE | 2020-05-23 12:26 | CM.DPC ---
DCP/continued: Received notification from Dr. Perez that patient medically stable to d/c today. HOUSEHOLD MANAGER met with patient and spouse/Adore on Friday05-22-20. Spouse doing caregiver training on Friday. Recommendation on Friday is SNF. Provided patient and spouse with recommendation. Spouse reports that she plans to take patient home. Dr. Gomez notified spouse that patient would be ready today 05-23-20. Spouse provided with information for home health and renting DME for home use. Spouse plans to get hospital bed. As of now, patient does have paid private caregivers approximately 4hrs per day through [facility]. Spouse agreeable to home health and has no preference in agencies. However, spouse does not want [facility]. Therefore, asked [facility]/Rosio to call [facility] because they cover [place]. Information faxed to [facility] and HOUSEHOLD MANAGER spoke with Yessica on Friday05-22-20. First visit anticipated for Friday05-24-20. HOUSEHOLD MANAGER attempted to meet with patient and spouse prior to d/c today. Spouse has already picked patient up. RN reports that agency had already called to coordinate first visit. P: Home with [facility]. Spouse refusing SNF, caregiver training provided to spouse by therapy. RAJNI Lewis
--- NOTE | 2020-05-24 09:10 | CM.DPC ---
DCP cont: Faxed discharge summary to [facility] at fax # [phone]. Fax confirmation scanned in. Rosio Jacobson, Care Water Manager
== END 2020-05-23 11:40 | disposition home health service (06) ==
LOC: ED 10:40 → AC 10:42
PROVIDERS: Admitting Provider Internal Medicine; Emergency Provider Emergency Medicine; Referring Provider Emergency Medicine; Visit Provider Internal Medicine
DX: S22.42XA Multiple fractures of ribs, left side, initial encounter for closed fracture (principal); R10.9 Unspecified abdominal pain; G20 Parkinson's disease; F03.90 Unspecified dementia, unspecified severity, without behavioral disturbance, psychotic disturbance, mood disturbance, and anxiety; W18.39XA Other fall on same level, initial encounter; Y92.009 Unspecified place in unspecified non-institutional (private) residence as the place of occurrence of the external cause; Z11.59 Encounter for screening for other viral diseases
CPT/HCPCS: 36415; 71045; 71101; 80048; 81001; 85025; 87635; 92526; 92610; 96372; 97116; 97162; 97166; 97530; 97535; 99284; G0378; J1650

== ENCOUNTER 2020-09-03 11:05 | Emergency (ER) | payer MEDICARE, OTHER, SELFPAY ==
[2020-05-21 13:50] VITALS: BMI 25.9
[2020-09-03] VITALS (16 sets, daily range): BP systolic 105–163; BP diastolic 58–92; PULSE 61–68; RESP 14–35; TEMP 36.7; O2SAT 93–98; BMI 25.7
--- NOTE | 2020-09-03 11:34 | DI.CT.S_ITS ---
PROCEDURE: CT HEAD/BRAIN WO CON INDICATIONS: confusion TECHNIQUE: Noncontrast 4.5 mm thick angled axial sections acquired from the foramen magnum to the vertex, with coronal and sagittal reformats. For radiation dose reduction, the following was used: automated exposure control, adjustment of mA and/or kV according to patient size. COMPARISON: [facility], CT, CT HEAD/BRAIN WO CON, 01/13/2020, 15:39. FINDINGS: Image quality: Motion artifact limits evaluation. CSF spaces: Basal cisterns are patent. No extra-axial fluid collections. The ventricles are symmetric in size and shape. Brain: No intracranial bleeds or masses. There is marked cerebral volume loss for age, with resultant ventricular and sulcal prominence. There are extensive periventricular and deep white matter chronic small vessel ischemic changes. There is intracranial internal carotid artery atherosclerosis. Skull and face: Calvarium and visualized facial bones appear intact, without suspicious lesions. Sinuses: Visualized sinuses and mastoids are clear. IMPRESSION: 1. Limited study given extensive motion artifact. 2. No acute intra-abdominal findings. 3. Extensive findings likely associated with chronic microvascular ischemic change. Dictated by: Janelle Brennan M.D. on 09/03/2020 at 13:03 Approved by: Janelle Brennan M.D. on 09/03/2020 at 13:04
[2020-09-03 12:04] LABS: Add Manual Diff / Slide Review NO; Basophils Absolute Auto 0 /uL (0-100); Basophils Percent Auto 0.5 % (0-2); Eosinophils Absolute Auto 100 /uL (0-450); Hematocrit 45.2 % (41-53); Hemoglobin 14.9 g/dL (13.5-17.5); Lymphocytes Absolute Auto 1100 /uL (1100-4500); Lymphocytes Percent Auto 18.9 % (25-40); Mean Corpuscular HGB Conc 33.1 % (30-36); Mean Corpuscular Hemoglobin 32.3 PG (26-34); Mean Corpuscular Volume 97.8 fL (80-100); Monocytes Absolute Auto 500 /uL (0-900); Monocytes Percent Auto 7.8 % (3-14); Neutrophils Absolute Auto 4300 /uL (1500-7000); Neutrophils Percent Auto 71.8 % (50-75); Platelet Count 188 X10^3/uL (150-400); Red Blood Cell Count 4.62 X10^6/uL (4.5-5.9); Red Cell Distribution Width 14.4 % (11.6-14.8); White Blood Cell Count 5.9 X10^3/uL (4.5-11.0)
[2020-09-03 12:07] LABS: Prothrombin Time 11.9 SECONDS (10.1-12.7)
[2020-09-03 12:09] LABS: PTT Partial Thromboplastin Tim 31 SECONDS (26.4-36.2)
[2020-09-03 12:11] LABS: Alanine Aminotransferase 4 IU/L (<50); Albumin 4.1 g/dL (3.5-5.0); Albumin Globulin Ratio 1.6 (1.0-2.8); Alkaline Phosphatase 57 U/L (38-126); Aspartate Aminotransferase 37 IU/L (17-59); BUN Creatinine Ratio 22.4 (6-22); Bilirubin Total 0.8 mg/dL (0.2-1.3); Blood Urea Nitrogen 17 mg/dL (9-20); Carbon Dioxide 28 mmol/L (22-32); Chloride 105 mmol/L (98-107); Creatine Kinase 1226 U/L (55-170); Estimated Glomerular Filt Rate > 60.0 mL/min (>60); Ethanol (ETOH) < 10 mg/dL; Globulin 2.6 g/dL (1.7-4.1); Glucose 106 mg/dL (80-110); HEMOLYSIS 27 (0-50); Potassium 4.6 mmol/L (3.4-5.1); Sodium 137 mmol/L (137-145); Total Protein 6.7 g/dL (6.3-8.2)
--- NOTE | 2020-09-03 12:16 | DI.RAD.S_ITS ---
PROCEDURE: XR CHEST 2V INDICATIONS: altered mental status TECHNIQUE: 2 views of the chest were acquired. COMPARISON: [facility], , XR CHEST 1V, 05/22/2020, 11:04. FINDINGS: Surgical changes and devices: None. Lungs and pleura: Lungs are clear. No pleural effusions or pneumothorax. Mediastinum: Mediastinal contours are normal. Heart size is normal. Bones and chest wall: No suspicious bony abnormalities. Soft tissues appear unremarkable. IMPRESSION: No acute cardiopulmonary findings. Dictated by: Janelle Brennan M.D. on 09/03/2020 at 13:05 Approved by: Janelle Brennan M.D. on 09/03/2020 at 13:05
[2020-09-03 12:23] LABS: Troponin I < 0.012 ng/mL (0.01-0.034)
[2020-09-03 12:26] LABS: Creatine Kinase MB 0.33 ng/mL (<2.37)
[2020-09-03 12:38] LABS: COVID19 -Nasal RAPID Negative (Negative)
--- NOTE | 2020-09-03 12:43 | ED_ITS ---
HPI - Altered Mental Status <DOUG Hyman - Last Filed: 09/03/20 22:24> General Chief Complaint: Altered Mental Status Stated Complaint: AMS Time Seen by Provider: 09/03/20 11:19 Source: EMS Mode of arrival: EMS Limitations: other (hx of dementia) History of Present Illness HPI narrative: This is a 75 year male, former smoker, who has history of Parkinson's disease and dementia presents to ED with EMS and spouse and daughter with concerns for altered mental status. According to family when he woke up at 9:30 a.m. this a.m., patient ambulated to chair with a caregiver with increased shuffling gait and sat on a chair for about an hour and noticed patient was unable to follow directions or to answer to question. Family reports 2 days ago he wandered outside of the house and got lost for 2 hours. He was found on the street wandering around. When he was brought back to home, he was cold and wet from raining. He was covered in sands and reportedly had fallen multiple times. Daughter reports her [place]. He was evaluated by EMS at that time, he was cold but not hypothermic and did well and did not seek evaluations at the hospital. Since then, he is able to bear with assistance without significant discomfort. Patient has history of sciatica and he reports right-sided sciatic pain. Patient is not currently on blood thinner and denies history of stroke, arrhythmia, or cardiac disease. Patient sees neurologist Dr. Michelle Smith at [facility] and last appointment was on 08/15/20 and has a follow- up appointment in November. PCP Dr. Hutson at [facility]. Related Data Home Medications Medication Instructions Recorded Confirmed carbidopa-levodopa 3 tab PO TID 01/13/20 05/22/20 quetiapine 25 mg PO BID 05/21/20 05/21/20 Allergies Allergy/AdvReac Type Severity Reaction Status Date / Time No Known Drug Allergies Allergy Verified 05/21/20 09:05 Review of Systems <DOUG Hyman - Last Filed: 09/03/20 22:24> Review of Systems Narrative: General: Denies fever, chills, fatigue, malaise, sweats. HEENT: Denies sinus pain, ear pain, sore throat, difficulty swallowing, dizziness. Respiratory: Denies dyspnea, cough, wheezing, hemoptysis, sputum. Cardiovascular: Denies chest pain, palpitations, orthopnea, edema. Gastrointestinal: Denies nausea, vomiting, abdominal pain, diarrhea, constipation, melena. : Denies dysuria, frequency, incontinence, hematuria, urinary retention. Musculoskeletal: See HPI Skin: Denies rash, skin lesions, or other. Neurologic: See HPI Psychiatric: No concerning psychosocial issues. 12-point review of systems is negative except for those stated above. Patient History <DOUG Hyman - Last Filed: 09/03/20 22:24> Medical History (Updated 09/03/20 @ 17:52 by DOUG Hyman) Dementia (Acute) Parkinsons (Acute) Surgical History (Updated 09/03/20 @ 18:08 by Guzman Perez DO) No history of previous surgery (Acute) Family History (Updated 05/21/20 @ 14:32 by Giulia Gomez MD) Mother Patient unable to provide medical history Social History household members: spouse Smoking Status: Former smoker Smoking Status: Former smoker alcohol intake frequency: 0-2 drinks per day Alcohol type: wine Substance Use Type: does not use Exam <DOUG Hyman - Last Filed: 09/03/20 22:24> Narrative Exam Narrative: GEN: Alert, oriented x 2, well appearing and nourished, and in no acute distress. Head: Normal cephalic, atraumatic. No scalp or temporal tenderness, palpable mass or rash. EYES: Pupils are equal, round, and reactive to light and accommodation. Ex traocular muscles are intact bilaterally. There is no subconjunctival hemorrhage, exudate and sclera non-icteric. ENT: Bilateral auditory canals and tympanic membranes clear. Hearing grossly intact. Nose without bleeding, purulent discharge, septal hematoma or deviation. Turbinate without erythema or swelling. Facial sinuses nontender to palpate. Mucous membrane moist, no mucosal lesion. Throat without erythema, tonsillar hypertrophy or exudate. Uvula in midline, airway patent. Neck: Trachea in midline. No JVD, non-tender without lymphadenopathy. No masses or thyroid megaly. Supple, non-tender and no meningeal signs. CARDIAC: Normal regular rate and rhythm without murmurs, gallops, or rubs. No chest wall tenderness. No peripheral edema, cyanosis or pallor. Capillary refill is less than 2 seconds. No carotid bruits. RESPIRATORY: Lungs are cleat to auscultate bilaterally. No cough, wheezes, rales, or rhonchi. No stridor, respiratory distress, increase work of breathing , or accessary muscle used. ABD: Abdomen soft, nontender and non-distended. No guarding or rebound tenderness to palpate. Bowel sounds are normal in all 4 quadrants. There is no palpable masses or organomegaly. EXT: Full painless ROM of all extremities with no loss of sensation, strength, e ffusion or edema. SKIN: Warm, dry, normal color for patient. No erythema, lesions or rash. BACK: Nontender without deformity or crepitance. No flank tenderness. NEUROLOGICAL: Alert and oriented to place and person which is his baseline. No facial droops, dysphasia. Strength and sensation symmetric and intact throughout. Cerebellar testing normal. PSYCHIATRIC: Good judgement and reason, without hallucinations, abnormal affect or abnormal behaviors during the examination. Initial Vital Signs Initial Vital Signs: Vital Signs Pulse Rate 66 09/03/20 11:21 Respiratory Rate 16 09/03/20 11:21 Pulse Oximetry 96 09/03/20 11:21 <Akila Chappell DO - Last Filed: 09/07/20 07:40> Initial Vital Signs Initial Vital Signs: Vital Signs Pulse Rate 66 09/03/20 11:21 Respiratory Rate 16 09/03/20 11:21 Pulse Oximetry 96 09/03/20 11:21 Scores <DOUG Hyman - Last Filed: 09/03/20 22:24> NIH Stroke Scale Level of Conciousness: Alert, keenly responsive Open/close eyes, close hand: Performs both tasks correctly Best gaze horizontal: Normal Visual storm: No visual loss Facial palsy: Normal symetrical movement Left arm drift: No drift for full 10 sec Right arm drift: No drift for full 10 sec Left leg drift: Some effort against gravity, cannot maintain, drifts down to bed Right leg drift: Some effort against gravity, cannot maintain, drifts down to bed Limb ataxia: Absent Sensory on face/arms/legs: Normal, no sensory loss Best language: No aphasia, normal Dysarthria: Normal Extinction or inattention: No abnormality Course <Josef SunDOUG Hatch - Last Filed: 09/03/20 22:24> Orders Ordered: Discontinued Medications Sodium Chloride (Normal Saline 0.9%) 1,000 mls @ 1,000 mls/hr IV BOLUS ONE Stop: 09/03/20 13:41 Last Infusion: 09/03/20 15:53 Dose: 0 mls/hr Documented by: Admin: 09/03/20 12:49 Dose: 1,000 mls/hr Documented by: NATACHA Consultations Consultation #1: Dr. Perez consulted for elevated CK from 1st draw, near double and physical, CT and lab finding. He will evaluate the patient in ED. Time: 17:11 Vital Signs Vital signs: Vital Signs - 8 hr 09/03/20 14:30 09/03/20 15:00 09/03/20 15:30 Pulse Rate 63 61 65 Respiratory Rate 26 H 21 34 H Blood Pressure 109/58 L 107/60 110/64 Pulse Oximetry 93 95 09/03/20 15:49 09/03/20 16:00 09/03/20 16:30 Pulse Rate 66 62 64 Respiratory Rate 21 18 35 H Blood Pressure 133/60 115/70 122/79 Pulse Oximetry 09/03/20 18:10 Pulse Rate 62 Respiratory Rate 18 Blood Pressure 163/92 H Pulse Oximetry 98 <Akila Chappell DO - Last Filed: 09/07/20 07:40> Orders Ordered: Discontinued Medications Sodium Chloride (Normal Saline 0.9%) 1,000 mls @ 1,000 mls/hr IV BOLUS ONE Stop: 09/03/20 13:41 Last Infusion: 09/03/20 15:53 Dose: 0 mls/hr Documented by: Admin: 09/03/20 12:49 Dose: 1,000 mls/hr Documented by: NATACHA Vital Signs Vital signs: Vital Signs - 8 hr 09/03/20 14:30 09/03/20 15:00 09/03/20 15:30 Pulse Rate 63 61 65 Respiratory Rate 26 H 21 34 H Blood Pressure 109/58 L 107/60 110/64 Pulse Oximetry 93 95 09/03/20 15:49 09/03/20 16:00 09/03/20 16:30 Pulse Rate 66 62 64 Respiratory Rate 21 18 35 H Blood Pressure 133/60 115/70 122/79 Pulse Oximetry 09/03/20 18:10 Pulse Rate 62 Respiratory Rate 18 Blood Pressure 163/92 H Pulse Oximetry 98 MDM - Altered Mental Status <Josef ANTOINETTE BoyceP - Last Filed: 09/03/20 22:24> Differential Diagnosis Differential diagnosis: Likely altered mental status, dementia, hypoglycemia, hyponatremia, other (stroke, TIA, seizure) and sepsis Medical Records Attestation: I reviewed the patient's medical records. Lab Data Attestation: I reviewed the patient's lab results. Result diagrams: 09/03/20 11:19 09/03/20 11:19 Labs: Lab Results 09/03/20 09/03/20 09/03/20 Range/Units 11:19 11:19 11:19 WBC 5.9 (4.5-11.0) X10^3/uL RBC 4.62 (4.5-5.9) X10^6/uL Hgb 14.9 (13.5-17.5) g/dL Hct 45.2 (41-53) % MCV 97.8 (80-100) fL MCH 32.3 (26-34) PG MCHC 33.1 (30-36) % RDW 14.4 (11.6-14.8) % Plt Count 188 (150-400) X10^3/uL Neut % (Auto) 71.8 (50-75) % Lymph % (Auto) 18.9 L (25-40) % Robeson % (Auto) 7.8 (3-14) % Eos % (Auto) 1.0 L (2-4) % Baso % (Auto) 0.5 (0-2) % Neut # (Auto) 4300 (9690-5158) /uL Lymph # (Auto) 1100 (6528-3797) /uL Robeson # (Auto) 500 (0-900) /uL Eos # (Auto) 100 (0-450) /uL Baso # (Auto) 0 (0-100) /uL PT 11.9 (10.1-12.7) SECONDS INR 1.0 (0.9-1.3) APTT 31 (26.4-36.2) SECONDS Sodium 137 (137-145) mmol/L Potassium 4.6 (3.4-5.1) mmol/L Chloride 105 (98-107) mmol/L Carbon Dioxide 28 (22-32) mmol/L BUN 17 (9-20) mg/dL Creatinine 0.76 (0.66-1.25) mg/dL Estimated GFR > 60.0 (>60) mL/min BUN/Creatinine Ratio 22.4 H (6-22) Glucose 106 (80-110) mg/dL Calcium 9.0 (8.4-10.2) mg/dL Total Bilirubin 0.8 (0.2-1.3) mg/dL AST 37 (17-59) IU/L ALT 4 (<50) IU/L Alkaline Phosphatase 57 (38-126) U/L Total Creatine Kinase 1226 H (55-170) U/L CK-MB (CK-2) 0.33 (<2.37) ng/mL CK-MB (CK-2) Rel Index 0.0 L (1.5-5.0) % Troponin I < 0.012 (0.01-0.034) ng/mL Total Protein 6.7 (6.3-8.2) g/dL Albumin 4.1 (3.5-5.0) g/dL Globulin 2.6 (1.7-4.1) g/dL Albumin/Globulin Ratio 1.6 (1.0-2.8) U Opiates 300ng/mL cut (Negative) Ur Oxycodone Screen (Negative) Urine Methadone Screen (Negative) Ur Barbiturates Screen (Negative) U Tricyclic Antidepress (Negative) Ur Phencyclidine Scrn (Negative) Ur Amphetamines Screen (Negative) U Methamphetamines Scrn (Negative) Ur MDMA Scrn (Ecstasy) (Negative) U Benzodiazepines Scrn (Negative) Urine Cocaine Screen (Negative) U Marijuana (THC) Screen (Negative) Ethyl Alcohol < 10 ( - 10) mg/dL COVID-19 PCR (Negative) 09/03/20 09/03/20 09/03/20 Range/Units 11:58 12:01 16:20 WBC (4.5-11.0) X10^3/uL RBC (4.5-5.9) X10^6/uL Hgb (13.5-17.5) g/dL Hct (41-53) % MCV (80-100) fL MCH (26-34) PG MCHC (30-36) % RDW (11.6-14.8) % Plt Count (150-400) X10^3/uL Neut % (Auto) (50-75) % Lymph % (Auto) (25-40) % Robeson % (Auto) (3-14) % Eos % (Auto) (2-4) % Baso % (Auto) (0-2) % Neut # (Auto) (4946-2296) /uL Lymph # (Auto) (9832-7863) /uL Robeson # (Auto) (0-900) /uL Eos # (Auto) (0-450) /uL Baso # (Auto) (0-100) /uL PT (10.1-12.7) SECONDS INR (0.9-1.3) APTT (26.4-36.2) SECONDS Sodium (137-145) mmol/L Potassium (3.4-5.1) mmol/L Chloride (98-107) mmol/L Carbon Dioxide (22-32) mmol/L BUN (9-20) mg/dL Creatinine (0.66-1.25) mg/dL Estimated GFR (>60) mL/min BUN/Creatinine Ratio (6-22) Glucose (80-110) mg/dL Calcium (8.4-10.2) mg/dL Total Bilirubin (0.2-1.3) mg/dL AST (17-59) IU/L ALT (<50) IU/L Alkaline Phosphatase (38-126) U/L Total Creatine Kinase 2217 H D (55-170) U/L CK-MB (CK-2) (<2.37) ng/mL CK-MB (CK-2) Rel Index (1.5-5.0) % Troponin I (0.01-0.034) ng/mL Total Protein (6.3-8.2) g/dL Albumin (3.5-5.0) g/dL Globulin (1.7-4.1) g/dL Albumin/Globulin Ratio (1.0-2.8) U Opiates 300ng/mL cut Negative (Negative) Ur Oxycodone Screen Negative (Negative) Urine Methadone Screen Negative (Negative) Ur Barbiturates Screen Negative (Negative) U Tricyclic Antidepress Positive H (Negative) Ur Phencyclidine Scrn Negative (Negative) Ur Amphetamines Screen Negative (Negative) U Methamphetamines Scrn Negative (Negative) Ur MDMA Scrn (Ecstasy) Negative (Negative) U Benzodiazepines Scrn Negative (Negative) Urine Cocaine Screen Negative (Negative) U Marijuana (THC) Screen Negative (Negative) Ethyl Alcohol ( - 10) mg/dL COVID-19 PCR Negative (Negative) Urine Dip Bedside Urine Glucose Negative Bedside Urine Bilirubin - Negative Bedside Urine Ketone - Negative Urine Specific [place] 1.025 Bedside Urine Occult Blood - Negative Bedside Urine pH 6.0 Bedside Urine Protein - Negative Bedside Urine Urobilinogen - Negative Bedside Urine Nitrite - Negative Imaging Data Chest x-ray: Radiologist's Impression: [address] [address] XRay Report Signed Patient: Jc Amaya [facility]#: [id number] : 7Acct:[id number] Age/Sex: 75 / MDate of Service: 09/03/20 Loc: ED Accession Number: [id number] Procedure: XR chest 2V Ordering Provider: Josef Boyce PROCEDURE: XR CHEST 2V INDICATIONS: altered mental status TECHNIQUE: 2 views of the chest were acquired. COMPARISON: [facility], , XR CHEST 1V, 05/22/2020, 11:04. FINDINGS: Surgical changes and devices: None. Lungs and pleura: Lungs are clear. No pleural effusions or pneumothorax. Mediastinum: Mediastinal contours are normal. Heart size is normal. Bones and chest wall: No suspicious bony abnormalities. Soft tissues appear unremarkable. IMPRESSION: No acute cardiopulmonary findings. Dictated by: Janelle Brennan M.D. on 09/03/2020 at 13:05 Approved by: Janelle Brennan M.D. on 09/03/2020 at 13:05 CT scan - head: Radiologist's Impression: [address] [address] [address] Scan Report Signed Patient: Jc Amaya [facility]#: [id number] : 7Acct:[id number] Age/Sex: 75 / MDate of Service: 09/03/20 Loc: ED Accession Number: [id number] Procedure: CT head/brain wo con Ordering Provider: Josef Boyce PROCEDURE: CT HEAD/BRAIN WO CON INDICATIONS: confusion TECHNIQUE: Noncontrast 4.5 mm thick angled axial sections acquired from the foramen magnum to the vertex, with coronal and sagittal reformats. For radiation dose reduction, the following was used: automated exposure control, adjustment of mA and/or kV according to patient size. COMPARISON: [facility], CT, CT HEAD/BRAIN WO CON, 01/13/2020, 15:39. FINDINGS: Image quality: Motion artifact limits evaluation. CSF spaces: Basal cisterns are patent. No extra-axial fluid collections. The ventricles are symmetric in size and shape. Brain: No intracranial bleeds or masses. There is marked cerebral volume loss for age, with resultant ventricular and sulcal prominence. There are extensive periventricular and deep white matter chronic small vessel ischemic changes. There is intracranial internal carotid artery atherosclerosis. Skull and face: Calvarium and visualized facial bones appear intact, without suspicious lesions. Sinuses: Visualized sinuses and mastoids are clear. IMPRESSION: 1. Limited study given extensive motion artifact. 2. No acute intra-abdominal findings. 3. Extensive findings likely associated with chronic microvascular ischemic change. Dictated by: Janelle Brennan M.D. on 09/03/2020 at 13:03 Approved by: Janelle Brennan M.D. on 09/03/2020 at 13:04 ECG Data Attestation: I personally reviewed and interpreted this ECG as follows: Prior ECG tracings: not available for review Interpretation: Sinus rhythm rate at 60. Left dominant [place]. VA interval 178, QRS duration 80, QT/QTc 400/400. No acute ST changes MDM Narrative Medical decision making narrative: This is a 75-year-old male who has history of dementia and Parkinson's disease presents to ED with EMS with chief complain of one hour duration of unresponsive verbally and to verbal command when he woke up this morning. He was awake and assisted to a chair to sit during this time and staring into space but without purposeful movements like catatonic state. Family reports patient is back to his baseline when he arrived to ED. Patient is pleasantly confused. No focal neurological deficit appreciated during exam. EKG with normal sinus rhythm rate at [address] changes. Stable H/H of 14.9/45.2. No leukocytosis. Unremarkable CMP with normal kidney and liver function test. Coag test is normal. Covid test is negative. UDS is positive only for tricyclic antidepressant. Urine test is negative for infection. Troponin is negative but elevated CK to 1226. ETOH level was negative. Patient was given fluid and rechecked CK which actually increased to 2217. Patient was able to hydrate with water and had sandwich without difficulty in ED. patient does not appears to be toxic or has metabolic abnormality per lab test results. CXR was negative for acute findings. CT test forehead was negative for acute findings but there is extensive chronic microvascular ischemic changes. Dr. Perez, hospitalist, was consulted for elevated CK after the IVF infusion. It is unclear the etiology of this finding but could be from frequent falls 2 days ago when patient got out of the house and wandered around for 2 hours. Patient does not have severe tremors from Parkinson's. Dr. Perez evaluated the patient at bedside and spoke with the family and I appreciate his time and elected to follow up with neurologist and will contact the office tomorrow. The patient's decreased responsiveness, almost catatonic state may due to progression Parkinson's or dementia or anti parkinsonian medication effect. Strict return precautions were discussed with patient's family and recommending repeat CK check in next 1- 2 days with good oral hydration. Patient and family member verbalized understanding in agreement with the treatment plan. Consulted Dr. Chappell (ED attending) with physical findings, lab and imaging test results and treatments and dispositions. <Akila Chappell, DO - Last Filed: 09/07/20 07:40> Lab Data Labs: Lab Results 09/03/20 09/03/20 09/03/20 Range/Units 11:19 11:19 11:19 WBC 5.9 (4.5-11.0) X10^3/uL RBC 4.62 (4.5-5.9) X10^6/uL Hgb 14.9 (13.5-17.5) g/dL Hct 45.2 (41-53) % MCV 97.8 (80-100) fL MCH 32.3 (26-34) PG MCHC 33.1 (30-36) % RDW 14.4 (11.6-14.8) % Plt Count 188 (150-400) X10^3/uL Neut % (Auto) 71.8 (50-75) % Lymph % (Auto) 18.9 L (25-40) % Robeson % (Auto) 7.8 (3-14) % Eos % (Auto) 1.0 L (2-4) % Baso % (Auto) 0.5 (0-2) % Neut # (Auto) 4300 (7171-0352) /uL Lymph # (Auto) 1100 (9610-4649) /uL Robeson # (Auto) 500 (0-900) /uL Eos # (Auto) 100 (0-450) /uL Baso # (Auto) 0 (0-100) /uL PT 11.9 (10.1-12.7) SECONDS INR 1.0 (0.9-1.3) APTT 31 (26.4-36.2) SECONDS Sodium 137 (137-145) mmol/L Potassium 4.6 (3.4-5.1) mmol/L Chloride 105 (98-107) mmol/L Carbon Dioxide 28 (22-32) mmol/L BUN 17 (9-20) mg/dL Creatinine 0.76 (0.66-1.25) mg/dL Estimated GFR > 60.0 (>60) mL/min BUN/Creatinine Ratio 22.4 H (6-22) Glucose 106 (80-110) mg/dL Calcium 9.0 (8.4-10.2) mg/dL Total Bilirubin 0.8 (0.2-1.3) mg/dL AST 37 (17-59) IU/L ALT 4 (<50) IU/L Alkaline Phosphatase 57 (38-126) U/L Total Creatine Kinase 1226 H (55-170) U/L CK-MB (CK-2) 0.33 (<2.37) ng/mL CK-MB (CK-2) Rel Index 0.0 L (1.5-5.0) % Troponin I < 0.012 (0.01-0.034) ng/mL Total Protein 6.7 (6.3-8.2) g/dL Albumin 4.1 (3.5-5.0) g/dL Globulin 2.6 (1.7-4.1) g/dL Albumin/Globulin Ratio 1.6 (1.0-2.8) U Opiates 300ng/mL cut (Negative) Ur Oxycodone Screen (Negative) Urine Methadone Screen (Negative) Ur Barbiturates Screen (Negative) U Tricyclic Antidepress (Negative) Ur Phencyclidine Scrn (Negative) Ur Amphetamines Screen (Negative) U Methamphetamines Scrn (Negative) Ur MDMA Scrn (Ecstasy) (Negative) U Benzodiazepines Scrn (Negative) Urine Cocaine Screen (Negative) U Marijuana (THC) Screen (Negative) Ethyl Alcohol < 10 ( - 10) mg/dL COVID-19 PCR (Negative) 09/03/20 09/03/20 09/03/20 Range/Units 11:58 12:01 16:20 WBC (4.5-11.0) X10^3/uL RBC (4.5-5.9) X10^6/uL Hgb (13.5-17.5) g/dL Hct (41-53) % MCV (80-100) fL MCH (26-34) PG MCHC (30-36) % RDW (11.6-14.8) % Plt Count (150-400) X10^3/uL Neut % (Auto) (50-75) % Lymph % (Auto) (25-40) % Robeson % (Auto) (3-14) % Eos % (Auto) (2-4) % Baso % (Auto) (0-2) % Neut # (Auto) (5474-4081) /uL Lymph # (Auto) (8008-8029) /uL Robeson # (Auto) (0-900) /uL Eos # (Auto) (0-450) /uL Baso # (Auto) (0-100) /uL PT (10.1-12.7) SECONDS INR (0.9-1.3) APTT (26.4-36.2) SECONDS Sodium (137-145) mmol/L Potassium (3.4-5.1) mmol/L Chloride (98-107) mmol/L Carbon Dioxide (22-32) mmol/L BUN (9-20) mg/dL Creatinine (0.66-1.25) mg/dL Estimated GFR (>60) mL/min BUN/Creatinine Ratio (6-22) Glucose (80-110) mg/dL Calcium (8.4-10.2) mg/dL Total Bilirubin (0.2-1.3) mg/dL AST (17-59) IU/L ALT (<50) IU/L Alkaline Phosphatase (38-126) U/L Total Creatine Kinase 2217 H D (55-170) U/L CK-MB (CK-2) (<2.37) ng/mL CK-MB (CK-2) Rel Index (1.5-5.0) % Troponin I (0.01-0.034) ng/mL Total Protein (6.3-8.2) g/dL Albumin (3.5-5.0) g/dL Globulin (1.7-4.1) g/dL Albumin/Globulin Ratio (1.0-2.8) U Opiates 300ng/mL cut Negative (Negative) Ur Oxycodone Screen Negative (Negative) Urine Methadone Screen Negative (Negative) Ur Barbiturates Screen Negative (Negative) U Tricyclic Antidepress Positive H (Negative) Ur Phencyclidine Scrn Negative (Negative) Ur Amphetamines Screen Negative (Negative) U Methamphetamines Scrn Negative (Negative) Ur MDMA Scrn (Ecstasy) Negative (Negative) U Benzodiazepines Scrn Negative (Negative) Urine Cocaine Screen Negative (Negative) U Marijuana (THC) Screen Negative (Negative) Ethyl Alcohol ( - 10) mg/dL COVID-19 PCR Negative (Negative) Urine Dip Bedside Urine Glucose Negative Bedside Urine Bilirubin - Negative Bedside Urine Ketone - Negative Urine Specific [place] 1.025 Bedside Urine Occult Blood - Negative Bedside Urine pH 6.0 Bedside Urine Protein - Negative Bedside Urine Urobilinogen - Negative Bedside Urine Nitrite - Negative Discharge Plan Departure Patient Disposition: Home Clinical Impression: Decreased alertness, Elevated CK Discharge Date/Time: 09/03/20 18:12 Instructions: Creatine Kinase, DI for Altered Mental Status Activity Restrictions/Additional Instructions: You have been diagnosed with [decreased alertness and elevated CK. No acute fin dings in head CT. Unremarkable lab test results but elevated CK. Please continue to hydrate well.]. What to do: *Take your medications as directed. *Follow up with your primary care provider/neurologist in 2-3 days, call for an appointment. Let them know you were seen in the ED and that we asked you to be seen in follow up. *Return to ED if you have any new, worsening, or concerning symptoms, such as [breathing difficulty, chest pain, unable to tolerate fluids, fever, worsening confusion or any acute concerns]. Prescriptions: No Action carbidopa-levodopa 25-100 mg tablet 3 tab PO TID RF: 0 quetiapine 25 mg tablet 25 mg PO BID RF: 0 <Akila Chappell DO - Last Filed: 09/07/20 07:40> Cosign ED Attending Cosignature Attestation: I was immediately available in the department for consultation. This documentation has been reviewed and I agree with assessment and observation was discussed with hospitalist for rising CK without clear cause but does not appear to be in overt rhabdo. Dr. Perez defers at this time after evaluating the patient in the department. Discussed that patient and family should have low threshold to return and needs repeat CK in 24 hours. Supervised by Akila Chappell DO
[2020-09-03] MEDS: SODIUM CHLORIDE 0.9% 1,000 ML 1000 ML IV (12:49)
[2020-09-03 12:57] LABS: UR Morphine/Opiate cutoff 300 Negative (Negative); Ur Creatinine Normal (Normal); Ur Specific Gravity Normal (Normal); Urine Amphetamines Negative (Negative); Urine Barbiturates Negative (Negative); Urine Benzodiazepines Negative (Negative); Urine Cocaine Negative (Negative); Urine MDMA Negative (Negative); Urine Methadone Negative (Negative); Urine Methamphetamines Negative (Negative); Urine Phencyclidine Negative (Negative); Urine Tetrahydrocannabinol Negative (Negative); Urine Tricyclic Antidepressant Positive (Negative); Urine pH Normal (Normal)
[2020-09-03 12:58] LABS: Urine Oxycodone Negative (Negative)
[2020-09-03 16:57] LABS: Creatine Kinase 2217 U/L (55-170)
--- NOTE | 2020-09-03 17:56 | P.CONS_ITS ---
History of Present Illness Consult details Date Patient Seen: 09/03/20 Time Patient Seen: 17:56 Chief complaint: AMS Reason for consult: Elevated CK Requesting provider: Josef Boyce Narrative: Jc Amaya is a 75-year-old male with past medical history of Parkinson's disease and dementia who presented to the emergency room after an episode of unresponsiveness. Patient is pleasantly confused and unable to co ntribute to history other than stating that he has had multiple falls. Family at bedside states that that patient 2 days ago was able to get out of his home and [place]. During that time he was wondering and reportedly fell multiple times. It was cold and raining outside and he was evaluated by EMS and was not hypothermic at this time and was doing well after. Today, the patient was sitting at the table and was not responding to his family. He kept staring into space but was not moving. He remained this way for over an hour before returning to his baseline shortly before his arrival to the ER. They did not note any facial droop or weakness. The patient told him that he could hear them speaking the entire time. In the emergency room, the patient's vital signs were unremarkable. Laboratory studies revealed an unremarkable CBC, normal coagulation studies, and unremarkable chemistries except for a mildly elevated CK level at 1226. He was given some fluids and his CK then actually increased to 2217. His creatinine was 0.76. Troponin was negative. Urine drug screen showed up positive for tricyclic antidepressants but no other substances. Alcohol level is negative. COVID-19 testing was also negative. Meds Home Medications and Allergies Home Medications Medication Instructions Recorded Confirmed Type carbidopa-levodopa 3 tab PO TID 01/13/20 05/22/20 History quetiapine 25 mg PO BID 05/21/20 05/21/20 History Allergies Allergy/AdvReac Type Severity Reaction Status Date / Time No Known Drug Allergies Allergy Verified 05/21/20 09:05 Review of Systems Review of Systems Narrative: All other systems reviewed with the patient and family and are negative unless otherwise stated. ROS: Yes unobtainable due to mental condition Exam Vital Signs (past 8 hours): - 09/03/20 11:21 09/03/20 11:30 09/03/20 11:38 Temperature 98.1 F Pulse Rate 66 68 66 Respiratory Rate 16 14 18 Blood Pressure 163/83 H Pulse Oximetry 96 94 98 09/03/20 12:00 09/03/20 12:30 09/03/20 13:00 Temperature Pulse Rate 65 62 63 Respiratory Rate 14 24 22 Blood Pressure Pulse Oximetry 96 97 96 09/03/20 13:30 09/03/20 14:00 09/03/20 14:13 Temperature Pulse Rate 63 63 68 Respiratory Rate 20 15 27 H Blood Pressure 105/76 Pulse Oximetry 95 93 09/03/20 14:30 09/03/20 15:00 09/03/20 15:30 Temperature Pulse Rate 63 61 65 Respiratory Rate 26 H 21 34 H Blood Pressure 109/58 L 107/60 110/64 Pulse Oximetry 93 95 09/03/20 15:49 09/03/20 16:00 09/03/20 16:30 Temperature Pulse Rate 66 62 64 Respiratory Rate 21 18 35 H Blood Pressure 133/60 115/70 122/79 Pulse Oximetry Oxygen Delivery Method Room Air Narrative Exam Narrative: GENERAL APPEARANCE: Well developed, well nourished, elderly male in no acute distress. SKIN: Inspection of the skin reveals no rashes, ulcerations or petechiae. HEENT: Normocephalic atraumatic, extraocular muscles are intact, oropharynx is clear and mucous membranes are moist, neck is supple without adenopathy NECK: Supple and symmetric. There was no thyroid enlargement, and no tenderness, or masses were felt. CHEST: Normal AP diameter and normal contour without any kyphoscoliosis. LUNGS: Auscultation of the lungs revealed no wheezes, rhonchi, or rales. CARDIOVASCULAR: There was a regular rate and rhythm without any murmurs, gallops, rubs. Peripheral pulses were 2+ and symmetric. ABDOMEN: Soft and nontender with normal bowel sounds. No ascites was noted. MUSCULOSKELETAL: There was no tenderness or effusions noted. Muscle strength is normal, hypertonic musculature and jerky movements. EXTREMITIES: No cyanosis, clubbing or edema. NEUROLOGIC: Alert and oriented x2. Chronic cognitive impairment is evident. No focal deficits. Objective Labs Result Diagrams: 09/03/20 11:19 09/03/20 11:19 Labs: Laboratory Results - last 24 hr 09/03/20 09/03/20 09/03/20 11:19 11:19 11:19 WBC 5.9 RBC 4.62 Hgb 14.9 Hct 45.2 MCV 97.8 MCH 32.3 MCHC 33.1 RDW 14.4 Plt Count 188 Neut % (Auto) 71.8 Lymph % (Auto) 18.9 L [place]kin % (Auto) 7.8 Eos % (Auto) 1.0 L Baso % (Auto) 0.5 Neut # (Auto) 4300 Lymph # (Auto) 1100 Pitkin # (Auto) 500 Eos # (Auto) 100 Baso # (Auto) 0 PT 11.9 INR 1.0 APTT 31 Sodium 137 Potassium 4.6 Chloride 105 Carbon Dioxide 28 BUN 17 Creatinine 0.76 Estimated GFR > 60.0 BUN/Creatinine Ratio 22.4 H Glucose 106 Calcium 9.0 Total Bilirubin 0.8 AST 37 ALT 4 Alkaline Phosphatase 57 Total Creatine Kinase 1226 H CK-MB (CK-2) 0.33 CK-MB (CK-2) Rel Index 0.0 L Troponin I < 0.012 Total Protein 6.7 Albumin 4.1 Globulin 2.6 Albumin/Globulin Ratio 1.6 U Opiates 300ng/mL cut Ur Oxycodone Screen Urine Methadone Screen Ur Barbiturates Screen U Tricyclic Antidepress Ur Phencyclidine Scrn Ur Amphetamines Screen U Methamphetamines Scrn Ur MDMA Scrn (Ecstasy) U Benzodiazepines Scrn Urine Cocaine Screen U Marijuana (THC) Screen Ethyl Alcohol < 10 COVID-19 PCR 09/03/20 09/03/20 09/03/20 11:58 12:01 16:20 WBC RBC Hgb Hct MCV MCH MCHC RDW Plt Count Neut % (Auto) Lymph % (Auto) Pitkin % (Auto) Eos % (Auto) Baso % (Auto) Neut # (Auto) Lymph # (Auto) Pitkin # (Auto) Eos # (Auto) Baso # (Auto) PT INR APTT Sodium Potassium Chloride Carbon Dioxide BUN Creatinine Estimated GFR BUN/Creatinine Ratio Glucose Calcium Total Bilirubin AST ALT Alkaline Phosphatase Total Creatine Kinase 2217 H D CK-MB (CK-2) CK-MB (CK-2) Rel Index Troponin I Total Protein Albumin Globulin Albumin/Globulin Ratio U Opiates 300ng/mL cut Negative Ur Oxycodone Screen Negative Urine Methadone Screen Negative Ur Barbiturates Screen Negative U Tricyclic Antidepress Positive H Ur Phencyclidine Scrn Negative Ur Amphetamines Screen Negative U Methamphetamines Scrn Negative Ur MDMA Scrn (Ecstasy) Negative U Benzodiazepines Scrn Negative Urine Cocaine Screen Negative U Marijuana (THC) Screen Negative Ethyl Alcohol COVID-19 PCR Negative Assessment & Plan Assessment & Plan narrative: Jc Amaya is a 75-year-old male with past medical history of Parkinson's disease and dementia who presented to the emergency room after an episode of unresponsiveness. He has returned to his baseline per family at bedside. He has a mild elevation in his CK, however he is eating and tolerating oral intake and would be able to sufficiently stay hydrated at home. His episode of unresponsiveness sounds like a period of catatonia which can be seen in parkinsonism, and likely represents progression of his parkinsonism. Further differentials include seizure however this seems less likely and there are no focal deficits to indicate an acute CVA or TIA. There does not appear to be a toxic or metabolic source either as he has had a negative infectious workup and there are no significant lab abnormalities. There could also be an unknown medication interaction. Offered to discuss the case with Neurology on-call, however given the patient's complex history and the availability of their usual neurologist tomorrow, the family elected to instead call in the morning as their clinic does not offer any call services. No current indications for admission. Thank you for the ability to participate in the care of this patient. Please do not hesitate to contact the hospitalist team with any questions.
== END 2020-09-03 18:12 | disposition home or self-care (01) ==
PROVIDERS: Emergency Provider Nurse Practitioner Family
DX: R41.9 Unspecified symptoms and signs involving cognitive functions and awareness (principal); R41.82 Altered mental status, unspecified; R74.8 Abnormal levels of other serum enzymes; G20 Parkinson's disease; F02.80 Dementia in other diseases classified elsewhere, unspecified severity, without behavioral disturbance, psychotic disturbance, mood disturbance, and anxiety; R07.9 Chest pain, unspecified
CPT/HCPCS: 36415; 70450; 71046; 80053; 80305; 80320; 81003; 82550; 82553; 84484; 85025; 85610; 85730; 87635; 93005; 93010; 96360; 96361; 99284

== ENCOUNTER → 2020-09-05 11:44 | Outpatient (CLI) | payer MEDICARE, OTHER, SELFPAY ==
[2020-05-21 13:50] VITALS: BMI 25.9
[2020-09-05 13:08] LABS: Hematocrit 47.8 % (41-53); Hemoglobin 15.8 g/dL (13.5-17.5); Mean Corpuscular HGB Conc 33.1 % (30-36); Mean Corpuscular Hemoglobin 31.8 PG (26-34); Mean Corpuscular Volume 96.1 fL (80-100); Platelet Count 234 X10^3/uL (150-400); Red Blood Cell Count 4.97 X10^6/uL (4.5-5.9); Red Cell Distribution Width 14.1 % (11.6-14.8)
[2020-09-05 13:21] LABS: Alanine Aminotransferase 8 IU/L (<50); Albumin 4.5 g/dL (3.5-5.0); Albumin Globulin Ratio 1.6 (1.0-2.8); Alkaline Phosphatase 67 U/L (38-126); Aspartate Aminotransferase 43 IU/L (17-59); BUN Creatinine Ratio 23.7 (6-22); Bilirubin Total 0.7 mg/dL (0.2-1.3); Blood Urea Nitrogen 18 mg/dL (9-20); Calcium 9.6 mg/dL (8.4-10.2); Carbon Dioxide 28 mmol/L (22-32); Chloride 104 mmol/L (98-107); Creatine Kinase 1162 U/L (55-170); Estimated Glomerular Filt Rate > 60.0 mL/min (>60); Globulin 2.9 g/dL (1.7-4.1); Glucose 121 mg/dL (80-110); HEMOLYSIS < 15 (0-50); Sodium 139 mmol/L (137-145); Total Protein 7.4 g/dL (6.3-8.2)
== END ==
PROVIDERS: Referring Provider Otolaryngology; Visit Provider Otolaryngology
DX: G93.40 Encephalopathy, unspecified (principal); R74.8 Abnormal levels of other serum enzymes
CPT/HCPCS: 36415; 80053; 82550; 85027

== ENCOUNTER → 2020-09-07 10:39 | Outpatient (CLI) | payer MEDICARE, OTHER, SELFPAY ==
[2020-05-21 13:50] VITALS: BMI 25.9
[2020-09-07 13:03] LABS: Alanine Aminotransferase 7 IU/L (<50); Albumin 4.4 g/dL (3.5-5.0); Albumin Globulin Ratio 1.8 (1.0-2.8); Alkaline Phosphatase 59 U/L (38-126); Aspartate Aminotransferase 25 IU/L (17-59); Bilirubin Total 0.6 mg/dL (0.2-1.3); Blood Urea Nitrogen 19 mg/dL (9-20); Calcium 9.8 mg/dL (8.4-10.2); Carbon Dioxide 25 mmol/L (22-32); Chloride 104 mmol/L (98-107); Estimated Glomerular Filt Rate > 60.0 mL/min (>60); Globulin 2.4 g/dL (1.7-4.1); Glucose 104 mg/dL (80-110); HEMOLYSIS < 15 (0-50); Potassium 4.5 mmol/L (3.4-5.1); Sodium 139 mmol/L (137-145); Total Protein 6.8 g/dL (6.3-8.2)
[2020-09-07 17:01] LABS: Creatine Kinase 243 U/L (55-170)
== END ==
PROVIDERS: PCP Psychiatry & Neurology Neurology; Referring Provider Psychiatry & Neurology Neurology; Visit Provider Psychiatry & Neurology Neurology
DX: G93.40 Encephalopathy, unspecified (principal); R74.8 Abnormal levels of other serum enzymes
CPT/HCPCS: 36415; 80053; 82550